=== PATIENT | female | born 1985 | race American Indian/Alaskan Native ===

== ENCOUNTER 2018-05-03 14:57 | Emergency (ER) | payer OTHER, SELFPAY ==
[2018-05-03 15:10] VITALS: BP 129/78; PULSE 87; RESP 18; TEMP 37; O2SAT 99; BMI 29.5
--- NOTE | 2018-05-03 15:15 | PC.NURSE ---
multiple small areas of redness/pain/swelling to lt buttock, hx of same r/t abscess per pt, denies fever/chills/nasea/drainage
--- NOTE | 2018-05-03 16:18 | ED_ITS ---
HPI - Skin/Abscess/Foreign Bdy <RIDDHI Medrano - Last Filed: 05/03/18 18:08> General Chief complaint: Skin/Abscess/Foreign Body Stated complaint: POSSIBLE ABCESS Time Seen by Provider: 05/03/18 15:17 Source: patient Mode of arrival: ambulatory Limitations: no limitations History of Present Illness HPI narrative: Patient presents for concern of abscess on her gluteus. States that she has 2. She has a history of abscesses on her buttocks, and feels that this is an early one. She denies any fevers, nausea, vomiting or diarrhea. She denies history of MRSA. Related Data Home Medications Medication Instructions Recorded Confirmed medroxyprogesterone [Depo-Provera] 400 mg IM #0 06/23/12 amlodipine-benazepril 1 cap PO DAILY 05/03/18 05/03/18 Previous Rx's Medication Instructions Recorded sulfamethoxazole-trimethoprim 1 tab PO BID 10 Days #20 tab 05/03/18 [Bactrim DS] Allergies Allergy/AdvReac Type Severity Reaction Status Date / Time codeine [CODEINE] Allergy Intermediate Hives Verified 05/03/18 15:24 Penicillins [PENICILLINS] Allergy Intermediate Hives Verified 05/03/18 15:24 Review of Systems <RIDDHI Medrano - Last Filed: 05/03/18 18:08> Review of Systems GENERAL: Denies chills, fatigue, malaise, fever, sweats. HEENT: Denies sinus pain, ear pain, sore throat, difficulty swallowing, dizziness. RESPIRATORY: Denies dyspnea, cough, wheezing, hemoptysis, sputum. CARDIOVASCULAR: Denies chest pain, palpitations, orthopnea, edema, GASTROINTESTINAL: Denies nausea, vomiting, abdominal pain, diarrhea, constipation, melena. : Denies dysuria, frequency, incontinence, hematuria, urinary retention. MUSCULOSKELETAL: denies weakness, joint pain, or bony pain SKIN: See HPI NEUROLOGIC: Denies weakness, headache, numbness, change in speech, confusion, seizures, incoordination. PSYCHIATRIC: No concerning psychosocial issues. 12 point review of systems is negative except for those stated above Exam <RIDDHI Medrano - Last Filed: 05/03/18 18:08> Narrative Exam Narrative: GENERAL: This is a well-nourished, well-developed patient, in no acute distress laying in bed. HEAD: Atraumatic. Normocephalic. No temporal or scalp tenderness. EYES: Pupils equal round and reactive. Extraocular motions intact. No scleral icterus. No injection or drainage. ENT: Nose without bleeding, purulent drainage or septal hematoma. Throat without erythema, tonsillar hypertrophy or exudate. Uvula midline. Airway patent. NECK: Trachea midline. No JVD or lymphadenopathy. Supple, nontender, no meningeal signs. CARDIOVASCULAR: Regular rate and rhythm without murmurs, gallops, or rubs. RESPIRATORY: Clear to auscultation. Breath sounds equal bilaterally. No wheezes , rales, or rhonchi. GASTROINTESTINAL: Abdomen soft, non-tender, nondistended. No hepato-splenomegaly , or palpable masses. No guarding. EXTREMITIES: No clubbing, cyanosis, or edema. No joint tenderness, effusion, or edema noted. BACK: Nontender without deformity or crepitance. No flank tenderness. NEURO: AOx3. SKIN: 1 cm of erythema noted on left buttock. No palpable abscess. 3 cm of erythema noted on right buttock. 1 cm possible abscess palpable in center. Hard to palpation. Initial Vital Signs Initial Vital Signs: Vital Signs Temperature 98.6 F 05/03/18 15:10 Pulse Rate 87 05/03/18 15:10 Respiratory Rate 18 05/03/18 15:10 Blood Pressure 129/78 H 05/03/18 15:10 Pulse Oximetry 99 05/03/18 15:10 <Mark Payton DO - Last Filed: 05/04/18 07:55> Initial Vital Signs Initial Vital Signs: Vital Signs Temperature 98.6 F 05/03/18 15:10 Pulse Rate 87 05/03/18 15:10 Respiratory Rate 18 05/03/18 15:10 Blood Pressure 129/78 H 05/03/18 15:10 Pulse Oximetry 99 05/03/18 15:10 Course <RIDDHI Medrano - Last Filed: 05/03/18 18:08> Additional Information: Patient presented with concern for possible abscess on her buttocks. Evaluation showed 2 small area of cellulitis, as well as a 1 cm possible abscess. However it felt very hard and indurated. Given the very small size, I attempted needle aspiration after thoroughly cleaning the area with 3 chlorhexidine with swabs. However I was unable to aspirate anything at this time. The patient and I did not feel inclined to do an incision and drainage at this point time, given the very small size as well as the hardness of the possible abscess. I discussed with patient follow-up if fevers, nausea, vomiting, diarrhea or spreading redness. I discussed at length Sitz baths in taking antibiotics as prescribed. She plans on following up with the primary care provider or coming back to the emergency department if needed. Vital Signs - 8 hr 05/03/18 15:10 Temperature 98.6 F Pulse Rate 87 Respiratory Rate 18 Blood Pressure 129/78 H Pulse Oximetry 99 <Mark Payton DO - Last Filed: 05/04/18 07:55> Vital Signs - 8 hr 05/03/18 15:10 Temperature 98.6 F Pulse Rate 87 Respiratory Rate 18 Blood Pressure 129/78 H Pulse Oximetry 99 MDM - Skin/Abscess/Foreign Bdy <AWA Medrano-BC - Last Filed: 05/03/18 18:08> MDM Narrative Medical decision making narrative: Given this small areas of erythema and warmth of the patient's buttocks, and treating for cellulitis at this time. She is allergic to penicillin and thus I do not want to use penicillins or cephalexin. I prescribed Bactrim at this point time. I discussed at length the fact that Bactrim combined with her amlodipine-benazepril can change potassium levels. She states accordance with that and, and will follow up if having any palpitations or anything like that. She would like to proceed with the Bactrim therapy at this point time. Given that I could not aspirate anything, the patient elected to not perform an I and D at this point time. She will monitor for worsening including fevers, nausea, vomiting, diarrhea. She will do Sitz baths and take antibiotics as discussed. She had no questions or concerns upon discharge. Discharge Plan Departure Patient Disposition: Home, Self-Care Clinical Impression: Cellulitis and abscess of buttock Discharge Date/Time: 05/03/18 16:34 Interventions: ED Discharge Assessment Last Done: 05/03/18 16:34 Instructions: DI for Cellulitis -- Adult, DI for Skin Abscess Activity Restrictions/Additional Instructions: I am starting you on antibiotics for skin infection. I also suggest that you do Sitz baths several times a day. We tried to drain your possible abscess today, however nothing came out. This is sitting in warm water with Epsom salt. Please be re-evaluated if he develops any fevers, nausea, vomiting or spreading redness. Follow up with her primary care physician or come back to the emergency department if needed. Prescriptions: New sulfamethoxazole-trimethoprim [Bactrim DS] 800-160 mg tablet 1 tab PO BID 10 Days Qty: 20 RF: 0 No Action medroxyprogesterone [Depo-Provera] 400 MG/1 ML suspension 400 mg IM Qty: 0 RF: 0 amlodipine-benazepril 5-10 mg Capsule 1 cap PO DAILY RF: 0 Referrals: Fatmata Hills PA-C [Primary Care Provider] - <Mark Payton DO - Last Filed: 05/04/18 07:55> Cosign ED Attending Tunde Attestation: I was available for consultation during this patient's emergency department encounter
== END 2018-05-03 16:34 | disposition home or self-care (01) ==
PROVIDERS: Emergency Provider Nurse Practitioner Family; Family Provider Physician Assistant; PCP Physician Assistant
DX: L02.31 Cutaneous abscess of buttock (principal); L03.317 Cellulitis of buttock
CPT/HCPCS: 99282

== ENCOUNTER → 2019-02-15 12:18 | Outpatient (CLI) | payer MEDICAID, OTHER, SELFPAY ==
--- NOTE | 2019-02-15 | DI.RAD.S_ITS ---
PROCEDURE: XR ANKLE RT MIN 3V INDICATIONS: RIGHT ANKLE SPRAIN TECHNIQUE: 3 views of the ankle were acquired. COMPARISON: [facility], , ANKLE 3 VIEWS LEFT, 01/05/2010, 23:53. FINDINGS: Bones: Mildly displaced, comminuted fracture of the distal fibula at, and below the level of the syndesmosis. No definite ankle mortise widening. Soft tissues: No tibiotalar joint effusion. Achilles tendon appears normal. IMPRESSION: Mildly displaced distal fibular fractures without definite mortise widening, although given the location of fracture plane, syndesmotic injury is not excluded. Dictated by: Sheba John M.D. on 02/15/2019 at 13:19 Approved by: Sheba John M.D. on 02/15/2019 at 13:22
== END ==
PROVIDERS: Family Provider Physician Assistant; PCP Physician Assistant; Visit Provider Family Medicine
DX: S82.831A Other fracture of upper and lower end of right fibula, initial encounter for closed fracture (principal); X58.XXXA Exposure to other specified factors, initial encounter
CPT/HCPCS: 73610

== ENCOUNTER 2019-05-29 10:26 | Emergency (ER) | payer MEDICAID, OTHER, SELFPAY ==
[2019-05-29 10:38] VITALS: BP 134/88; PULSE 80; RESP 13; TEMP 37.1; O2SAT 99
--- NOTE | 2019-05-29 11:12 | ED.HA ---
HPI - Headache General Chief Complaint: Headache Stated Complaint: severe headache/body aches Time Seen by Provider: 05/29/19 10:54 Source: patient Mode of arrival: ambulatory Limitations: no limitations History of Present Illness HPI Narrative: Patient is a 33-year-old female who presents with a variety of symptoms ongoing for the last 2 days. Sounds as though she has upper respiratory like symptoms headache nasal congestion cough but not productive. No shortness of breath. No real sore throat. She says that she is dehydrated because she vomited 1 time yesterday and had 1 episode of diarrhea but continues to drink juice. She is no longer nauseous she has not had any vomiting or diarrhea today. She has no abdominal pain. She did not have any Tylenol or ibuprofen at home so she did not take anything. She is complaining of some body aches as well that she is afebrile here. She is complaining of frequent urination. MD Complaint: headache Relieving factors: nothing Exacerbating factors: none Related Data Home Medications Medication Instructions Recorded Confirmed medroxyprogesterone [Depo-Provera] 400 mg IM #0 06/23/12 amlodipine-benazepril 1 cap PO DAILY 05/03/18 05/03/18 Previous Rx's Medication Instructions Recorded ibuprofen 800 mg PO TID PRN #20 tab 05/29/19 Allergies Allergy/AdvReac Type Severity Reaction Status Date / Time codeine [CODEINE] Allergy Intermediate Hives Verified 05/03/18 15:24 Penicillins [PENICILLINS] Allergy Intermediate Hives Verified 05/03/18 15:24 Review of Systems Review of Systems ROS Unobtainable: All systems reviewed & are unremarkable except as noted in HPI and below Constitutional Reports body ache(s), Denies chills, Denies fever(s) and Reports headache(s) Eyes Denies diplopia and Denies irritation ENT Ears, Nose, Mouth, and Throat: Reports headache(s) and Reports sore throat Cardiovascular Denies chest pain, Denies irregular heart rhythm, Denies lightheadedness, Denies palpitations and Denies orthopnea Respiratory Reports cough, Denies pain with cough and Denies stridor Gastrointestinal Gastrointestinal: Denies abdominal pain, Denies change in bowel habits, Denies diarrhea, Denies nausea and Denies vomiting Genitourinary Denies hematuria, Denies flank pain, Denies urinary incontinence and Denies urinary urgency Musculoskeletal Denies back pain, Denies muscle weakness, Denies numbness and Denies tingling Integumentary/Breasts Denies pruritus, Denies erythema, Denies rash and Denies wounds Neurologic Reports headache(s), Denies numbness and Denies tingling Endocrine Denies palpitations [facility] Medical History Hypertension (Acute) Social History Smoking Status: Current every day smoker Social History Smoking Status: Current every day smoker Exam Initial Vital Signs Initial Vital Signs: Vital Signs Temperature 98.8 F 05/29/19 10:38 Pulse Rate 80 05/29/19 10:38 Respiratory Rate 13 05/29/19 10:38 Blood Pressure 134/88 05/29/19 10:38 Pulse Oximetry 99 05/29/19 10:38 GENERAL: Well-appearing, well-nourished and in no acute distress. HEENT: Head atraumatic,EOMI, pupils reactive, face symmetric, neck supple no meningeal signs PHARYNX: No erythema, no tonsillar exudate, no cervical lymphadenopathy CARDIOVASCULAR: Regular rate and rhythm without murmurs, rubs or gallops. RESPIRATORY: Breath sounds equal bilaterally, no wheezes rales or rhonchi. ABDOMEN: Soft, nontender. Normoactive bowel sounds all 4 quadrants. No guarding or rebound. EXTREMITIES: Normal range of motion, no clubbing or edema. Neurovascularly intact NEUROLOGICAL: Alert and oriented x4.Normal gait and speech. Cranial nerves II through XII grossly intact. Director Of Public Safety strength equal bilaterally good push and pull equally SKIN: Warm, dry, no laceration, no petechiae, no rashes or lesions. Course Orders Ordered: Discontinued Medications Ibuprofen (Advil) 800 mg PO NOW ONE Stop: 05/29/19 11:12 Last Admin: 05/29/19 11:41 Dose: 800 mg Vital Signs - 8 hr 05/29/19 10:38 05/29/19 11:47 Temperature 98.8 F Pulse Rate 80 74 Respiratory Rate 13 12 Blood Pressure 134/88 134/84 Pulse Oximetry 99 98 MDM - Headache Lab Data Point of Care Testing Test Results Negative Urine Dip Bedside Urine Glucose Negative Bedside Urine Bilirubin - Negative Bedside Urine Ketone - Negative Urine Specific Mead 1.010 Bedside Urine Occult Blood - Negative Bedside Urine pH 5.5 Bedside Urine Protein - Negative Bedside Urine Urobilinogen - Negative Bedside Urine Nitrite - Negative Bedside Urine Leukocytes - Negative Esterase MDM Narrative Medical decision making narrative: Patient signed symptoms are more consistent with a viral infection. At this time antibiotics are not indicated. No UTI. Discharge Plan Departure Patient Disposition: Home Clinical Impression: Upper respiratory infection Qualifiers: URI type: unspecified viral URI Qualified Code(s): J06.9 - Acute upper respiratory infection, unspecified Discharge Date/Time: 05/29/19 11:48 Interventions: ED Discharge Assessment Last Done: 05/29/19 11:47 Instructions: DI for Viral Upper Respiratory Infection -- Adult Activity Restrictions/Additional Instructions: *You have been diagnosed with upper respiratory infection *What to do: At this time no antibiotics are indicated. Recommend continuing hydration with fluid, and resting as needed *Continue to take medications as directed Ibuprofen 800 mg every 8 hours if needed for body aches or fever take with food *Follow up with your primary care provider in 2-3 days *Return to ER if you should have worsening headache, weakness persistent vomiting, increased shortness of breath or any new, worsening or concerning symptoms Prescriptions: New ibuprofen 800 mg tablet 800 mg PO TID PRN (Reason: pain) Qty: 20 RF: 0 No Action medroxyprogesterone [Depo-Provera] 400 MG/1 ML suspension 400 mg IM Qty: 0 RF: 0 amlodipine-benazepril 5-10 mg Capsule 1 cap PO DAILY RF: 0 Referrals: Fatmata Hills PA-C [Primary Care Provider] -
[2019-05-29] MEDS: IBUPROFEN 400 MG TABLET 800 MG PO (11:41)
[2019-05-29 11:47] VITALS: BP 134/84; PULSE 74; RESP 12; O2SAT 98
== END 2019-05-29 11:48 | disposition home or self-care (01) ==
PROVIDERS: Emergency Provider Emergency Medicine; PCP Physician Assistant
DX: J06.9 Acute upper respiratory infection, unspecified (principal)
CPT/HCPCS: 81003; 81025; 99282

== ENCOUNTER 2019-08-15 22:00 | Emergency (ER) | payer MEDICAID, OTHER, SELFPAY ==
[2019-08-15 22:09] VITALS: BP 131/57; PULSE 97; RESP 20; TEMP 36.9; O2SAT 98; BMI 30.2
--- NOTE | 2019-08-15 22:20 | ED.ABDPAIN ---
HPI - Abdominal Pain General Chief Complaint: Urogenital-Female Stated Complaint: states bad abdominal pain and low back pain Time Seen by Provider: 08/15/19 22:18 Source: patient Mode of arrival: Ambulatory Limitations: no limitations History of Present Illness HPI narrative: Patient is a 34-year-old female who presents with right lower quadrant pain. She says it started today she has got some right flank pain as well it radiates around to her abdomen. She says she just finished a 2 week course of antibiotic for possible UTI that was diagnosed at the clinic. She had 1 episode of diarrhea yesterday and that seems to have stopped. She sometimes feels nauseous. She feels like the pain comes in waves. She feels a nauseous at times but no vomiting. She does have a significant amount of stress in her life apparently while bearing her brother her mother . MD complaint: abdominal pain and flank pain Pain Consistency: intermittent Location: RLQ Severity: moderate Quality: sharp Related Data Home Medications Medication Instructions Recorded Confirmed medroxyprogesterone [Depo-Provera] 400 mg IM #0 06/23/12 amlodipine-benazepril 1 cap PO DAILY 05/03/18 05/03/18 Previous Rx's Medication Instructions Recorded ibuprofen 800 mg PO TID PRN #20 tab 05/29/19 Allergies Allergy/AdvReac Type Severity Reaction Status Date / Time codeine [CODEINE] Allergy Intermediate Hives Verified 08/15/19 22:11 Penicillins [PENICILLINS] Allergy Intermediate Hives Verified 08/15/19 22:11 Review of Systems Review of Systems Narrative: GENERAL: Denies chills, fatigue, malaise, fever, sweats, travel HEENT: Denies sinus pain, ear pain, sore throat, difficulty swallowing, neck pain RESPIRATORY: Denies dyspnea, cough, wheezing, hemoptysis, sputum. CARDIOVASCULAR: Denies chest pain, palpitations, orthopnea, edema GASTROINTESTINAL: See HPI : Denies dysuria, frequency, incontinence, hematuria, urinary retention, flank pain. MUSCULOSKELETAL: Denies weakness, joint pain, or bony pain SKIN: No rash, no erythema, no pruritus NEUROLOGIC: Denies weakness, dizziness, headache, numbness, change in speech, confusion PSYCHIATRIC: No concerning psychosocial issues. 12 point review of systems is negative except for those stated above and HPI [facility] Medical History Hypertension (Acute) Social History Smoking Status: Current every day smoker Social History Smoking Status: Current every day smoker Exam Initial Vital Signs Initial Vital Signs: Vital Signs Temperature 98.4 F 08/15/19 22:09 Pulse Rate 97 H 08/15/19 22:09 Respiratory Rate 20 08/15/19 22:09 Blood Pressure 131/57 L 08/15/19 22:09 Pulse Oximetry 98 08/15/19 22:09 GENERAL: Quite anxious and tachypneic shallow breathing HEENT: Head atraumatic,EOMI, pupils reactive, face symmetric CARDIOVASCULAR: Regular rate and rhythm without murmurs, rubs or gallops. RESPIRATORY: Breath sounds equal bilaterally, no wheezes rales or rhonchi. Tachypnea. Speaks in full sentences no difficulty ABDOMEN: Soft, mild right lower quadrant tenderness no guarding no rebound : Mild CVA tenderness CVA tenderness EXTREMITIES: Normal range of motion, no clubbing or edema. Neurovascularly intact NEUROLOGICAL: Alert and oriented x4.Normal gait and speech. Cranial nerves II through XII grossly intact. SKIN: Warm, dry, no laceration, no petechiae, no rashes or lesions. Course Orders Ordered: ED Orders 08/15/19 22:31 Complete Blood Count AUTO DIFF Stat Comprehensive Metabolic Panel Stat Lipase Stat Troponin & CK Cardiac Panel Stat 08/15/19 22:32 CT kidney ureter bladder (KUB) Stat 08/15/19 23:37 US pelvic complete Stat Discontinued Medications Sodium Chloride (Normal Saline 0.9%) 1,000 mls @ 1,000 mls/hr IV CONT ANISHA Last Infusion: 08/16/19 00:34 Dose: 0 mls/hr Documented by: Admin: 08/15/19 22:58 Dose: 1,000 mls/hr Documented by: RAJNI Ketorolac Tromethamine (Toradol) 30 mg IV NOW ONE Stop: 08/15/19 22:32 Last Admin: 08/15/19 22:57 Dose: 30 mg Documented by: RAJNI Lorazepam (Ativan) 0.5 mg PO NOW ONE Stop: 08/16/19 00:30 Last Admin: 08/16/19 00:35 Dose: 0.5 mg Documented by: JACKIE Ondansetron HCl (Zofran) 4 mg IV NOW ONE Stop: 08/15/19 22:32 Last Admin: 08/15/19 22:58 Dose: 4 mg Documented by: RAJNI Vital Signs Vital signs: Vital Signs - 8 hr 08/15/19 22:09 08/16/19 00:00 Temperature 98.4 F Pulse Rate 97 H 79 Respiratory Rate 20 21 Blood Pressure 131/57 L Blood Pressure [Right Arm] 111/74 Pulse Oximetry 98 99 MDM - Abdominal Pain Lab Data Attestation: I reviewed the patient's lab results. Result diagrams: 08/15/19 22:31 08/15/19 22:31 Labs: Lab Results 08/15/19 08/15/19 Range/Units 22:31 22:31 WBC 11.9 H (4.5-11.0) X10^3/uL RBC 4.63 (4.0-5.2) X10^6/uL Hgb 13.8 (12.0-16.0) g/dL Hct 41.1 (36-46) % MCV 88.7 (80-100) fL MCH 29.8 (26-34) PG MCHC 33.7 (30-36) % RDW 13.4 (11.6-14.8) % Plt Count 337 (150-400) X10^3/uL Neut % (Auto) 59.8 (50-75) % Lymph % (Auto) 28.4 (25-40) % Meeker % (Auto) 7.6 (3-14) % Eos % (Auto) 3.0 (2-4) % Baso % (Auto) 1.2 (0-2) % Neut # (Auto) 7100 H (5393-8068) /uL Lymph # (Auto) 3400 (8847-4173) /uL Meeker # (Auto) 900 (0-900) /uL Eos # (Auto) 400 (0-450) /uL Baso # (Auto) 100 (0-100) /uL Sodium 141 (137-145) mmol/L Potassium 4.0 (3.4-5.1) mmol/L Chloride 111 H (98-107) mmol/L Carbon Dioxide 23 (22-32) mmol/L BUN 13 (7-17) mg/dL Creatinine 0.80 (0.52-1.04) mg/dL Estimated GFR > 60.0 (>60) mL/min BUN/Creatinine Ratio 16.3 (6-22) Glucose 105 H (70-100) mg/dL Calcium 9.3 (8.4-10.2) mg/dL Total Bilirubin 0.2 (0.2-1.3) mg/dL AST 21 (14-36) IU/L ALT 19 (9-52) IU/L Alkaline Phosphatase 57 (38-126) U/L Total Creatine Kinase 49 (30-135) U/L CK-MB (CK-2) TNP CK-MB (CK-2) Rel Index TNP Troponin I < 0.012 (0.01-0.034) ng/mL Total Protein 7.6 (6.3-8.2) g/dL Albumin 4.2 (3.5-5.0) g/dL Globulin 3.4 (1.7-4.1) g/dL Albumin/Globulin Ratio 1.2 (1.0-2.8) Lipase 103 (23-300) U/L Point of care testing: Point of Care Testing Test Results Negative Urine Dip Bedside Urine Glucose Negative Bedside Urine Bilirubin - Negative Bedside Urine Ketone - Negative Urine Specific [place] 1.005 Bedside Urine Occult Blood - Negative Bedside Urine pH 6.0 Bedside Urine Protein - Negative Bedside Urine Urobilinogen - Negative Bedside Urine Nitrite - Negative Bedside Urine Leukocytes - Negative Esterase Imaging Data CT scan - abdomen: Radiologist's impression: REGIONAL [employer]ICE PRESIDENT [employer] REPORT: NO ACUTE APPENDICITIS DIVERTICULITIS COLITIS OBSTRUCTIVE UROPATHY PELVIC us: Radiologist's impression: 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 SIMPLE FLUID CONTAINING CYST WITHIN THE RIGHT OVARY INTACT ARTERIAL FLOW TO THE RIGHT OVARY. INTACT ARTERIAL BLOOD FLOW TO THE LEFT OVARY. SIMPLE CONTAINING CYST WITHIN THE LEFT OVARY NO FREE FLUID. ECG Data Attestation: I personally reviewed and interpreted this ECG as follows: Prior ECG tracings: not available for review Interpretation: Normal sinus rhythm rate 85 p.r. interval 158 QRS [address] elevations or depressions no signs of ischemia MDM Narrative Medical decision making narrative: The patient is quite anxious she has a lot going on in her life at this time. No source of right lower quadrant pain identified except that she does have a simple ovarian cyst. No sign of infection. She is overall feeling much better she has significant amount of support around her period Discharge Plan Departure Patient Disposition: Home Clinical Impression: Abdominal pain Qualifiers: Abdominal location: right lower quadrant Qualified Code(s): R10.31 - Right lower quadrant pain Discharge Date/Time: 08/16/19 00:39 Instructions: Acute Abdominal Pain Activity Restrictions/Additional Instructions: *You have been diagnosed with abdominal pain *What to do: At this time blood work CT scan and ultrasound were all reassuring. EKG also reassuring *Continue to take medications as directed *Follow up with your primary care provider in 2-3 days *Return to ER if you should have increasing chest pain heart palpitations shortness of breath abdominal pain persistent vomiting or any new, worsening or concerning symptoms Prescriptions: No Action medroxyprogesterone [Depo-Provera] 400 MG/1 ML suspension 400 mg IM Qty: 0 RF: 0 amlodipine-benazepril 5-10 mg Capsule 1 cap PO DAILY RF: 0 ibuprofen 800 mg tablet 800 mg PO TID PRN (Reason: pain) Qty: 20 RF: 0 Referrals: Fatmata Hills PA-C [Primary Care Provider] -
--- NOTE | 2019-08-15 22:32 | DI.CT.S_ITS ---
PROCEDURE: CT KIDNEY URETER BLADDER (KUB) INDICATIONS: right flank pain, nausea, vomiting TECHNIQUE: Noncontrast 5 mm thick sections acquired from the diaphragms to the symphysis. 5 mm thick coronal and sagittal reformats were then performed. For radiation dose reduction, the following was used: automated exposure control, adjustment of mA and/or kV according to patient size. COMPARISON: Report of CT abdomen and pelvis 06/06/2007. FINDINGS: Image quality: Excellent. Lung bases: Lung bases are clear. Heart size is normal. Urinary system: Both kidneys are normal in size. No kidney stones. No hydronephrosis or perinephric fat stranding. Both ureters appear non-dilated throughout their expected courses. Bladder wall thickness is normal; no calcified bladder stones. Other solid organs: Liver is normal in size. Gallbladder is unremarkable. Pancreas is normal in contours. Spleen is normal in size. No adrenal nodules. Peritoneum and bowel: Unenhanced bowel loops demonstrate normal wall thickness and caliber. A few colonic diverticula. The appendix is normal. Increased stool in the rectal vault. No free fluid or air. Nodes and vessels: No retroperitoneal or mesenteric adenopathy by size criteria. Aorta and inferior vena cava are normal in caliber. Minimal calcified atherosclerotic plaque. Abdominal wall: Small fat-containing periumbilical hernia. Pelvis: No free pelvic fluid. Uterus is unremarkable. No inguinal hernias or adenopathy. Bones: No suspicious bony lesions. No vertebral body compression fractures. IMPRESSION: Negative exam. No kidney stones. No acute inflammatory change identified. The appendix is normal. This report is concordant with the overnight preliminary interpretation. Dictated by: Meng Eric M.D. on 08/16/2019 at 7:56 Approved by: Meng Eric M.D. on 08/16/2019 at 8:02
[2019-08-15 22:43] LABS: Add Manual Diff / Slide Review NO; Basophils Absolute Auto 100 /uL (0-100); Basophils Percent Auto 1.2 % (0-2); Eosinophils Absolute Auto 400 /uL (0-450); Hematocrit 41.1 % (36-46); Hemoglobin 13.8 g/dL (12.0-16.0); Lymphocytes Absolute Auto 3400 /uL (1100-4500); Lymphocytes Percent Auto 28.4 % (25-40); Mean Corpuscular HGB Conc 33.7 % (30-36); Mean Corpuscular Hemoglobin 29.8 PG (26-34); Mean Corpuscular Volume 88.7 fL (80-100); Monocytes Absolute Auto 900 /uL (0-900); Monocytes Percent Auto 7.6 % (3-14); Neutrophils Absolute Auto 7100 /uL (1500-7000); Neutrophils Percent Auto 59.8 % (50-75); Platelet Count 337 X10^3/uL (150-400); Red Blood Cell Count 4.63 X10^6/uL (4.0-5.2); Red Cell Distribution Width 13.4 % (11.6-14.8); White Blood Cell Count 11.9 X10^3/uL (4.5-11.0)
[2019-08-15 22:51] LABS: Alanine Aminotransferase 19 IU/L (9-52); Albumin 4.2 g/dL (3.5-5.0); Albumin Globulin Ratio 1.2 (1.0-2.8); Alkaline Phosphatase 57 U/L (38-126); Aspartate Aminotransferase 21 IU/L (14-36); BUN Creatinine Ratio 16.3 (6-22); Bilirubin Total 0.2 mg/dL (0.2-1.3); Blood Urea Nitrogen 13 mg/dL (7-17); Calcium 9.3 mg/dL (8.4-10.2); Carbon Dioxide 23 mmol/L (22-32); Chloride 111 mmol/L (98-107); Creatine Kinase 49 U/L (30-135); Estimated Glomerular Filt Rate > 60.0 mL/min (>60); Globulin 3.4 g/dL (1.7-4.1); Glucose 105 mg/dL (70-100); HEMOLYSIS < 15 (0-50); Lipase 103 U/L (23-300); Sodium 141 mmol/L (137-145); Total Protein 7.6 g/dL (6.3-8.2)
[2019-08-15] MEDS: KETOROLAC 60 MG/2 ML VIAL 30 MG IV (22:57)
[2019-08-15] MEDS: ONDANSETRON 4 MG/2 ML INJ IV (22:58)
[2019-08-15] MEDS: SODIUM CHLORIDE 0.9% 1,000 ML 1000 ML IV (22:58)
[2019-08-15 23:03] LABS: Troponin I < 0.012 ng/mL (0.01-0.034)
--- NOTE | 2019-08-15 23:37 | DI.US.S_ITS ---
PROCEDURE: US PELVIC COMPLETE INDICATIONS: PAIN TECHNIQUE: Real-time scanning was performed of the pelvic organs, with image documentation. Additional endovaginal scanning was necessary due to incomplete visualization of the adnexal and endometrial structures by transabdominal scanning. COMPARISON: CT KUB 08/15/2019. FINDINGS: Transabdominal scanning: Limited scanning through the kidneys shows no hydronephrosis. No pathologic free abdominal or pelvic fluid. Right kidney measures 9.1 cm. Left kidney measures 9.1 cm. No inflammatory change in the right lower quadrant is identified. Endovaginal scanning: Uterus: Uterus is normal in size at 5.2 x 3.1 x 4.1 cm. The endometrium measures 2 mm in combined thickness. Ovaries: Right ovary measures 2.3 x 1.0 x 1.1. Left ovary measures 3.1 x 1.4 x 1.5. Small follicles bilaterally. Color flow is symmetric. IMPRESSION: Negative exam. No source for pelvic pain is identified. No free fluid. This report is concordant with the overnight preliminary interpretation. Dictated by: Meng Eric M.D. on 08/16/2019 at 7:30 Approved by: Meng Eric M.D. on 08/16/2019 at 7:33
[2019-08-16] VITALS: BP 111/74; PULSE 79; RESP 21; O2SAT 99
[2019-08-16] MEDS: LORazepam 0.5 MG TABLET PO (00:35)
== END 2019-08-16 00:39 | disposition home or self-care (01) ==
PROVIDERS: Emergency Provider Emergency Medicine; PCP Physician Assistant
DX: R10.31 Right lower quadrant pain (principal)
CPT/HCPCS: 36415; 74176; 76830; 76856; 80053; 81003; 81025; 82550; 83690; 84484; 85025; 93005; 96361; 96374; 96375; 99283; 99285; J1885; J2405

== ENCOUNTER → 2019-11-24 14:05 | Outpatient (CLI) | payer OTHER, SELFPAY ==
--- NOTE | 2019-11-24 | DI.RAD.S_ITS ---
PROCEDURE: XR WRIST RT MIN 3V INDICATIONS: RIGHT WRIST PAIN TECHNIQUE: 4 views of the wrist were acquired. COMPARISON: [facility], , WRIST MINIMUM 3 VIEWS RIGHT, 12/29/2009, 10:59. FINDINGS: Bones: No fractures or dislocations. No suspicious bony lesions. Scaphoid view: No trauma the scaphoid is found. Soft tissues: No suspicious soft tissue calcifications. IMPRESSION: Normal for age, source of current persistent pain symptoms is not seen. Dictated by: Varinder Swenson M.D. on 11/24/2019 at 14:33 Approved by: Varinder Swenson M.D. on 11/24/2019 at 14:34
--- NOTE | 2019-11-24 | DI.RAD.S_ITS ---
PROCEDURE: XR HAND RT MIN 3V INDICATIONS: acute pain of right hand TECHNIQUE: 3 views of the hand(s) acquired. COMPARISON: None. FINDINGS: Bones: No fractures or dislocations. Carpal bones are normally aligned. No suspicious bony lesions. Soft tissues: No suspicious soft tissue calcifications. IMPRESSION: Normal for age, source of current pain symptoms is not seen. Dictated by: Varinder Swenson M.D. on 11/24/2019 at 14:33 Approved by: Varinder Swenson M.D. on 11/24/2019 at 14:33
== END ==
PROVIDERS: PCP Physician Assistant; Visit Provider Physician Assistant
DX: M25.531 Pain in right wrist (principal); M79.641 Pain in right hand
CPT/HCPCS: 73110; 73130

== ENCOUNTER 2020-04-28 06:31 | Emergency (ER) | payer MEDICAID, SELFPAY ==
[2020-04-28 06:37] VITALS: BP 141/81; PULSE 88; RESP 18; TEMP 36.6
--- NOTE | 2020-04-28 06:41 | ED_ITS ---
HPI - General Adult <Mark Payton DO - Last Filed: 04/28/20 18:42> General Chief complaint: Abdominal Pain Stated complaint: abdominal pain Time Seen by Provider: 04/28/20 06:34 Source: patient Mode of arrival: Ambulatory Limitations: no limitations History of Present Illness HPI narrative: 34-year-old female here for evaluation of 2 days of lower abdominal pain. Had some nausea yesterday but no vomiting. No prior abdominal surgeries. No change in bowel habits. Pain not worse or better with bowel movements. Has had urinary frequency. States the pain is worse when she urinates. States she has not had a menstrual cycle in 2 months. Not on control. No fevers. Has not tried anything for her symptoms prior to arrival Related Data Home Medications Medication Instructions Recorded Confirmed medroxyprogesterone [Depo-Provera] 400 mg IM #0 06/23/12 12/14/19 lisinopril 40 mg tablet 40 mg PO DAILY 12/14/19 12/14/19 Previous Rx's Medication Instructions Recorded ibuprofen 800 mg PO TID PRN #20 tab 05/29/19 doxycycline hyclate 100 mg PO BID #20 cap 04/28/20 metronidazole 500 mg PO TID #21 tab 04/28/20 Allergies Allergy/AdvReac Type Severity Reaction Status Date / Time codeine [CODEINE] Allergy Intermediate Hives Verified 12/14/19 08:35 Penicillins [PENICILLINS] Allergy Intermediate Hives Verified 12/14/19 08:35 <Jelly Kelley MD - Last Filed: 04/28/20 17:45> History of Present Illness HPI narrative: Care is assumed. Patient is independently examined and questions. It turns out that she has had vaginal discharge for the last 4 days and that does coincide with a new sexual partner without the use of condoms. She also complains of severe pelvic pain that almost feels like menstrual cramps. She is not having any vaginal bleeding. Review of Systems <Mark Payton DO - Last Filed: 04/28/20 18:42> Constitutional Constitutional: Denies fever(s) Cardiovascular Cardiovascular: Denies chest pain and Denies dyspnea Respiratory Respiratory: Denies dyspnea Gastrointestinal Gastrointestinal: Reports abdominal pain, Denies change in bowel habits, Denies diarrhea, Reports nausea and Denies vomiting Genitourinary Genitourinary: Reports flank pain Genitourinary: Reports flank pain and Denies vaginal discharge Comments: Urinary frequency Musculoskeletal Musculoskeletal: Denies arthralgias, Reports back pain and Denies myalgias Integumentary/Breasts Skin/Breast: Denies rash Neurologic Neurologic: Denies behavioral changes Psychiatric Psychiatric: Denies behavioral changes Hematologic/Lymphatic Hematologic/Lymphatic: Denies easy bleeding and Denies easy bruising Patient History <Mark Payton DO - Last Filed: 04/28/20 18:42> Medical History Hypertension (Acute) Social History Smoking Status: Current every day smoker Smoking Status: Current every day smoker tobacco type: cigarettes alcohol intake frequency: 0-2 drinks per day Substance Use Type: marijuana Exam <Mark Payton DO - Last Filed: 04/28/20 18:42> Initial Vital Signs Initial Vital Signs: Vital Signs Temperature 98 F 04/28/20 06:37 Pulse Rate 88 04/28/20 06:37 Respiratory Rate 18 04/28/20 06:37 Blood Pressure 141/81 H 04/28/20 06:37 Const General: cooperative and comfortable Limitations: mental status not altered HENMT Head: normal to inspection and normocephalic Resp Effort & Inspection: normal respiratory effort Cardio Rate: regular rate GI Inspection: non-distended Palpation: soft, No firm and tender (Suprapubic) Back/Spine/Pelvis Back: CVA tenderness left Neuro General: patient alert and patient awake Cognition: normal cognition Speech: speech normal Extrem General: normal to inspection and capillary refill normal Psych Appearance: grossly normal and well kempt <Jelly Kelley MD - Last Filed: 04/28/20 17:45> Narrative Exam Narrative: Pelvic exam: Bimanual exam is undertaken. External genitalia is within normal limits. Vaginal mucosa is not particularly erythematous. There is a minor amount of white discharge without significant odor from the vagina. She has tenderness along the entire length of her vagina with moderate cervical motion tenderness and tenderness in the right adnexa more so than the left. Initial Vital Signs Initial Vital Signs: Vital Signs Temperature 98 F 04/28/20 06:37 Pulse Rate 88 04/28/20 06:37 Respiratory Rate 18 04/28/20 06:37 Blood Pressure 141/81 H 04/28/20 06:37 Course <Mark Payton DO - Last Filed: 04/28/20 18:42> Orders Ordered: Discontinued Medications Doxycycline Hyclate (Vibramycin) 100 mg PO NOW ONE Stop: 04/28/20 07:51 Last Admin: 04/28/20 08:03 Dose: 100 mg Documented by: JESUS Ceftriaxone Sodium/Dextrose (Rocephin) 1 gm in 50 mls @ 100 mls/hr IV NOW ONE Stop: 04/28/20 08:20 Last Infusion: 04/28/20 08:44 Dose: 0 mls/hr Documented by: Admin: 04/28/20 08:04 Dose: 100 mls/hr Documented by: JESUS Ketorolac Tromethamine (Toradol) 15 mg IV NOW ONE Stop: 04/28/20 07:54 Last Admin: 04/28/20 08:03 Dose: 15 mg Documented by: JESUS Vital Signs Vital signs: Vital Signs - 8 hr 04/28/20 10:34 Pulse Rate 76 Respiratory Rate 14 Blood Pressure [Right Arm] 100/55 L Pulse Oximetry 100 <Jelly Kelley MD - Last Filed: 04/28/20 17:45> Orders Ordered: Discontinued Medications Doxycycline Hyclate (Vibramycin) 100 mg PO NOW ONE Stop: 04/28/20 07:51 Last Admin: 04/28/20 08:03 Dose: 100 mg Documented by: JESUS Ceftriaxone Sodium/Dextrose (Rocephin) 1 gm in 50 mls @ 100 mls/hr IV NOW ONE Stop: 04/28/20 08:20 Last Infusion: 04/28/20 08:44 Dose: 0 mls/hr Documented by: Admin: 04/28/20 08:04 Dose: 100 mls/hr Documented by: JESUS Ketorolac Tromethamine (Toradol) 15 mg IV NOW ONE Stop: 04/28/20 07:54 Last Admin: 04/28/20 08:03 Dose: 15 mg Documented by: JESUS Vital Signs Vital signs: Vital Signs - 8 hr 04/28/20 10:34 Pulse Rate 76 Respiratory Rate 14 Blood Pressure [Right Arm] 100/55 L Pulse Oximetry 100 Medical Decision Making <Mark Payton DO - Last Filed: 04/28/20 18:42> Lab Data Result diagrams: 04/28/20 07:30 04/28/20 07:30 Labs: Lab Results 04/28/20 04/28/20 04/28/20 Range/Units 07:30 07:30 07:30 WBC 8.3 (4.5-11.0) X10^3/uL RBC 4.47 (4.0-5.2) X10^6/uL Hgb 14.0 (12.0-16.0) g/dL Hct 40.5 (36-46) % MCV 90.5 (80-100) fL MCH 31.4 (26-34) PG MCHC 34.7 (30-36) % RDW 13.6 (11.6-14.8) % Plt Count 287 (150-400) X10^3/uL Neut % (Auto) 62.0 (50-75) % Lymph % (Auto) 24.4 L (25-40) % [place] % (Auto) 9.6 (3-14) % Eos % (Auto) 3.3 (2-4) % Baso % (Auto) 0.7 (0-2) % Neut # (Auto) 5200 (4771-1523) /uL Lymph # (Auto) 2000 (2823-0278) /uL [place] # (Auto) 800 (0-900) /uL Eos # (Auto) 300 (0-450) /uL Baso # (Auto) 100 (0-100) /uL Sodium 140 (137-145) mmol/L Potassium 4.0 (3.4-5.1) mmol/L Chloride 112 H (98-107) mmol/L Carbon Dioxide 23 (22-32) mmol/L BUN 9 (7-17) mg/dL Creatinine 0.72 (0.52-1.04) mg/dL Estimated GFR > 60.0 (>60) mL/min BUN/Creatinine Ratio 12.5 (6-22) Glucose 98 (70-100) mg/dL Calcium 9.1 (8.4-10.2) mg/dL Total Bilirubin 0.3 (0.2-1.3) mg/dL AST 48 H (14-36) IU/L ALT 67 H (<35) IU/L Alkaline Phosphatase 64 (38-126) U/L Total Protein 6.6 (6.3-8.2) g/dL Albumin 3.8 (3.5-5.0) g/dL Globulin 2.8 (1.7-4.1) g/dL Albumin/Globulin Ratio 1.4 (1.0-2.8) Lipase 130 (23-300) U/L Ur Chlamydia DNA (PCR) Not detected HIV 1&2 Ab/P24 Ag 4thGn (NEGATIVE) N gonorrhoeae DNA (PCR) Not detected 04/28/20 Range/Units 07:46 WBC (4.5-11.0) X10^3/uL RBC (4.0-5.2) X10^6/uL Hgb (12.0-16.0) g/dL Hct (36-46) % MCV (80-100) fL MCH (26-34) PG MCHC (30-36) % RDW (11.6-14.8) % Plt Count (150-400) X10^3/uL Neut % (Auto) (50-75) % Lymph % (Auto) (25-40) % Mccone % (Auto) (3-14) % Eos % (Auto) (2-4) % Baso % (Auto) (0-2) % Neut # (Auto) (9453-5374) /uL Lymph # (Auto) (6545-1439) /uL Mccone # (Auto) (0-900) /uL Eos # (Auto) (0-450) /uL Baso # (Auto) (0-100) /uL Sodium (137-145) mmol/L Potassium (3.4-5.1) mmol/L Chloride (98-107) mmol/L Carbon Dioxide (22-32) mmol/L BUN (7-17) mg/dL Creatinine (0.52-1.04) mg/dL Estimated GFR (>60) mL/min BUN/Creatinine Ratio (6-22) Glucose (70-100) mg/dL Calcium (8.4-10.2) mg/dL Total Bilirubin (0.2-1.3) mg/dL AST (14-36) IU/L ALT (<35) IU/L Alkaline Phosphatase (38-126) U/L Total Protein (6.3-8.2) g/dL Albumin (3.5-5.0) g/dL Globulin (1.7-4.1) g/dL Albumin/Globulin Ratio (1.0-2.8) Lipase (23-300) U/L Ur Chlamydia DNA (PCR) HIV 1&2 Ab/P24 Ag 4thGn Negative (NEGATIVE) N gonorrhoeae DNA (PCR) Point of Care Testing Test Results Negative Urine Dip Bedside Urine Glucose Negative Bedside Urine Bilirubin - Negative Bedside Urine Ketone - Negative Urine Specific [place] 1.010 Bedside Urine Occult Blood - Negative Bedside Urine pH 6.0 Bedside Urine Protein - Negative Bedside Urine Urobilinogen - Negative Bedside Urine Nitrite - Negative Bedside Urine Leukocytes - Negative Esterase Point of care testing: Point of Care Testing Test Results Negative Urine Dip Bedside Urine Glucose Negative Bedside Urine Bilirubin - Negative Bedside Urine Ketone - Negative Urine Specific [place] 1.010 Bedside Urine Occult Blood - Negative Bedside Urine pH 6.0 Bedside Urine Protein - Negative Bedside Urine Urobilinogen - Negative Bedside Urine Nitrite - Negative Bedside Urine Leukocytes - Negative Esterase MDM Narrative Medical decision making narrative: Care turned over to Dr. Kelley do follow-up on labs and disposition. <Jelly Kelley MD - Last Filed: 04/28/20 17:45> Medical Records Medical records reviewed: Yes I reviewed the patient's medical records. Lab Data Lab results reviewed: Yes I reviewed the patient's lab results. Lab results narrative: Mildly elevated transaminases Occasional clue cells Labs: Lab Results 04/28/20 04/28/20 04/28/20 Range/Units 07:30 07:30 07:30 WBC 8.3 (4.5-11.0) X10^3/uL RBC 4.47 (4.0-5.2) X10^6/uL Hgb 14.0 (12.0-16.0) g/dL Hct 40.5 (36-46) % MCV 90.5 (80-100) fL MCH 31.4 (26-34) PG MCHC 34.7 (30-36) % RDW 13.6 (11.6-14.8) % Plt Count 287 (150-400) X10^3/uL Neut % (Auto) 62.0 (50-75) % Lymph % (Auto) 24.4 L (25-40) % [place] % (Auto) 9.6 (3-14) % Eos % (Auto) 3.3 (2-4) % Baso % (Auto) 0.7 (0-2) % Neut # (Auto) 5200 (5203-5397) /uL Lymph # (Auto) 2000 (2397-8022) /uL [place] # (Auto) 800 (0-900) /uL Eos # (Auto) 300 (0-450) /uL Baso # (Auto) 100 (0-100) /uL Sodium 140 (137-145) mmol/L Potassium 4.0 (3.4-5.1) mmol/L Chloride 112 H (98-107) mmol/L Carbon Dioxide 23 (22-32) mmol/L BUN 9 (7-17) mg/dL Creatinine 0.72 (0.52-1.04) mg/dL Estimated GFR > 60.0 (>60) mL/min BUN/Creatinine Ratio 12.5 (6-22) Glucose 98 (70-100) mg/dL Calcium 9.1 (8.4-10.2) mg/dL Total Bilirubin 0.3 (0.2-1.3) mg/dL AST 48 H (14-36) IU/L ALT 67 H (<35) IU/L Alkaline Phosphatase 64 (38-126) U/L Total Protein 6.6 (6.3-8.2) g/dL Albumin 3.8 (3.5-5.0) g/dL Globulin 2.8 (1.7-4.1) g/dL Albumin/Globulin Ratio 1.4 (1.0-2.8) Lipase 130 (23-300) U/L Ur Chlamydia DNA (PCR) Not detected HIV 1&2 Ab/P24 Ag 4thGn (NEGATIVE) N gonorrhoeae DNA (PCR) Not detected 04/28/20 Range/Units 07:46 WBC (4.5-11.0) X10^3/uL RBC (4.0-5.2) X10^6/uL Hgb (12.0-16.0) g/dL Hct (36-46) % MCV (80-100) fL MCH (26-34) PG MCHC (30-36) % RDW (11.6-14.8) % Plt Count (150-400) X10^3/uL Neut % (Auto) (50-75) % Lymph % (Auto) (25-40) % [place] % (Auto) (3-14) % Eos % (Auto) (2-4) % Baso % (Auto) (0-2) % Neut # (Auto) (3486-5665) /uL Lymph # (Auto) (0676-8770) /uL [place] # (Auto) (0-900) /uL Eos # (Auto) (0-450) /uL Baso # (Auto) (0-100) /uL Sodium (137-145) mmol/L Potassium (3.4-5.1) mmol/L Chloride (98-107) mmol/L Carbon Dioxide (22-32) mmol/L BUN (7-17) mg/dL Creatinine (0.52-1.04) mg/dL Estimated GFR (>60) mL/min BUN/Creatinine Ratio (6-22) Glucose (70-100) mg/dL Calcium (8.4-10.2) mg/dL Total Bilirubin (0.2-1.3) mg/dL AST (14-36) IU/L ALT (<35) IU/L Alkaline Phosphatase (38-126) U/L Total Protein (6.3-8.2) g/dL Albumin (3.5-5.0) g/dL Globulin (1.7-4.1) g/dL Albumin/Globulin Ratio (1.0-2.8) Lipase (23-300) U/L Ur Chlamydia DNA (PCR) HIV 1&2 Ab/P24 Ag 4thGn Negative (NEGATIVE) N gonorrhoeae DNA (PCR) Point of Care Testing Test Results Negative Urine Dip Bedside Urine Glucose Negative Bedside Urine Bilirubin - Negative Bedside Urine Ketone - Negative Urine Specific [place] 1.010 Bedside Urine Occult Blood - Negative Bedside Urine pH 6.0 Bedside Urine Protein - Negative Bedside Urine Urobilinogen - Negative Bedside Urine Nitrite - Negative Bedside Urine Leukocytes - Negative Esterase Point of care testing: Point of Care Testing Test Results Negative Urine Dip Bedside Urine Glucose Negative Bedside Urine Bilirubin - Negative Bedside Urine Ketone - Negative Urine Specific [place] 1.010 Bedside Urine Occult Blood - Negative Bedside Urine pH 6.0 Bedside Urine Protein - Negative Bedside Urine Urobilinogen - Negative Bedside Urine Nitrite - Negative Bedside Urine Leukocytes - Negative Esterase MDM Narrative Medical decision making narrative: 34-year-old woman presents with 4 days of increasing pelvic pain with vaginal discharge and recent episode of unprotected sex with a new partner. Urine is sent for gonorrhea and chlamydia. Blood work is obtained. Will begin empiric treatment for PID. At this point her exam is most consistent with PID and she is not based on a urine test. Without significant rebound guarding or significant masses appreciated on pelvic exam I do not believe that additional imaging will be required unless lab work is dramatically abnormal. Of today suggests doxycycline for 14 days as well as a single dose of a long- acting cephalosporin. I also recommend testing for HIV and syphilis in addition to the gonorrhea and chlamydia as well as a wet mount. Patient consents to HIV and syphilis testing and orders are placed. PID, with no need for hospitalization as she is able to tolerate fluids without difficulty. Possible bacterial vaginosis as well Will treat with doxycycline 100 mg b.i.d. for 10 days for pelvic inflammatory disease and metronidazole 500 mg 3 times a day for 7 days for bacterial vaginosis. Safe for home discharge Discharge Plan Departure Patient Disposition: Home Clinical Impression: Acute pelvic inflammatory disease, Bacterial vaginosis, Abnormal cervical Papanicolaou smear Discharge Date/Time: 04/28/20 10:44 Instructions: DI for Pelvic Inflammatory Disease, DI for Bacterial Vaginosis Activity Restrictions/Additional Instructions: Thank you for coming in today I believe that you have pelvic inflammatory disease as the cause of the low pelvic pain you are experiencing. I have given you a prescription for doxycycline 100 mg twice a day to continue for 10 days. Please complete this entire course. You may also have bacterial vaginosis I have given you a prescription for metronidazole 500 mg 3 times a day to treat this. Drinking alcohol of any form with metronidazole will give you a horrible flushed sensation and make you vomit. Both of these prescriptions have been electronically transmitted to [facility] for you to pickler helper today. We did test for gonorrhea, chlamydia, HIV and syphilis, all standard sexually transmitted infection screening tests. If these return positive you will be contacted. I would recommend talking with your recent sexual partner and suggest that he see his physician for sexually transmitted infection testing as well. I would also recommend the regular use of condoms with new sexual partners to prevent sexually transmitted infections as well as unwanted pregnancies. If you are developing worsening fevers, worsening pain, vomiting to the point that your unable to keep your medications down you do need to return to the emergency room for further evaluation. I hope you feel better. Prescriptions: New doxycycline hyclate 100 mg capsule 100 mg PO BID Qty: 20 RF: 0 metronidazole 500 mg tablet 500 mg PO TID Qty: 21 RF: 0 No Action medroxyprogesterone [Depo-Provera] 400 MG/1 ML suspension 400 mg IM Qty: 0 RF: 0 lisinopril 40 mg tablet 40 mg PO DAILY RF: 0 ibuprofen 800 mg tablet 800 mg PO TID PRN (Reason: pain) Qty: 20 RF: 0 Referrals: [place] PA-C [Primary Care Provider] -
[2020-04-28 07:51] LABS: Add Manual Diff / Slide Review NO; Basophils Absolute Auto 100 /uL (0-100); Basophils Percent Auto 0.7 % (0-2); Eosinophils Absolute Auto 300 /uL (0-450); Eosinophils Percent Auto 3.3 % (2-4); Hematocrit 40.5 % (36-46); Lymphocytes Absolute Auto 2000 /uL (1100-4500); Lymphocytes Percent Auto 24.4 % (25-40); Mean Corpuscular HGB Conc 34.7 % (30-36); Mean Corpuscular Hemoglobin 31.4 PG (26-34); Mean Corpuscular Volume 90.5 fL (80-100); Monocytes Absolute Auto 800 /uL (0-900); Monocytes Percent Auto 9.6 % (3-14); Neutrophils Absolute Auto 5200 /uL (1500-7000); Platelet Count 287 X10^3/uL (150-400); Red Blood Cell Count 4.47 X10^6/uL (4.0-5.2); Red Cell Distribution Width 13.6 % (11.6-14.8); White Blood Cell Count 8.3 X10^3/uL (4.5-11.0)
[2020-04-28 07:59] LABS: Alanine Aminotransferase 67 IU/L (<35); Albumin 3.8 g/dL (3.5-5.0); Albumin Globulin Ratio 1.4 (1.0-2.8); Alkaline Phosphatase 64 U/L (38-126); Aspartate Aminotransferase 48 IU/L (14-36); BUN Creatinine Ratio 12.5 (6-22); Bilirubin Total 0.3 mg/dL (0.2-1.3); Blood Urea Nitrogen 9 mg/dL (7-17); Calcium 9.1 mg/dL (8.4-10.2); Carbon Dioxide 23 mmol/L (22-32); Chloride 112 mmol/L (98-107); Estimated Glomerular Filt Rate > 60.0 mL/min (>60); Globulin 2.8 g/dL (1.7-4.1); Glucose 98 mg/dL (70-100); HEMOLYSIS < 15 (0-50); Lipase 130 U/L (23-300); Sodium 140 mmol/L (137-145); Total Protein 6.6 g/dL (6.3-8.2)
[2020-04-28] MEDS: DOXYCYCLINE HYCLATE 100 MG TABLET PO (08:03)
[2020-04-28] MEDS: KETOROLAC 60 MG/2 ML VIAL 15 MG IV (08:03)
[2020-04-28] MEDS: CEFTRIAXONE 1 GM/50 ML FROZ.PIGGY IV (08:04)
[2020-04-28 08:52] VITALS: BP 101/55; PULSE 73; RESP 14; O2SAT 100
[2020-04-28 09:15] LABS: HIV 1 & 2 Ab/Ag 4th Gen Combo NEGATIVE (NEGATIVE)
[2020-04-28 09:18] LABS: Urine N gonorrhoeae NOT DETECTED
[2020-04-28 09:20] LABS: Urine Chlamydia NOT DETECTED
[2020-04-28 09:30] VITALS: BP 100/55; PULSE 75; RESP 14; O2SAT 99
[2020-04-28 10:34] VITALS: BP 100/55; PULSE 76; RESP 14; O2SAT 100
[2020-05-01 06:40] LABS: Treponema pallidum Antibodies Non Reactive (Non Reactive)
== END 2020-04-28 10:44 | disposition home or self-care (01) ==
PROVIDERS: Emergency Medicine; Emergency Provider Emergency Medicine; PCP Physician Assistant
DX: N73.0 Acute parametritis and pelvic cellulitis (principal); N76.0 Acute vaginitis; R87.619 Unspecified abnormal cytological findings in specimens from cervix uteri
CPT/HCPCS: 36415; 80053; 81003; 81025; 83690; 85025; 86780; 87210; 87220; 87389; 87491; 87591; 96365; 96375; 99284; J1885

== ENCOUNTER 2020-05-30 02:41 | Emergency (ER) | payer MEDICAID, SELFPAY ==
[2020-05-30] VITALS (13 sets, daily range): BP systolic 125–174; BP diastolic 76–110; PULSE 68–97; RESP 16–29; TEMP 36.8; O2SAT 99–100; BMI 45.9
--- NOTE | 2020-05-30 02:41 | DI.RAD.S_ITS ---
PROCEDURE: XR CHEST 1V INDICATIONS: chest pain TECHNIQUE: One view of the chest was acquired. COMPARISON: [facility], , CHEST 2 VIEW, 09/11/2009, 9:25. FINDINGS: Surgical changes and devices: None. Lungs and pleura: Lungs are clear. No pleural effusions or pneumothorax. Mediastinum: Mediastinal contours appear normal. Heart size is normal. Bones and chest wall: No suspicious bony lesions. Overlying soft tissues appear unremarkable. IMPRESSION: No acute cardiopulmonary disease process. Dictated by: Carolina Brown MD, PhD on 05/30/2020 at 8:44 Approved by: Carolina Brown MD, PhD on 05/30/2020 at 8:44
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
[2020-05-30 02:52] LABS: Add Manual Diff / Slide Review NO; Basophils Absolute Auto 100 /uL (0-100); Basophils Percent Auto 0.9 % (0-2); Eosinophils Absolute Auto 100 /uL (0-450); Eosinophils Percent Auto 0.8 % (2-4); Hematocrit 41.4 % (36-46); Hemoglobin 13.7 g/dL (12.0-16.0); Lymphocytes Absolute Auto 3300 /uL (1100-4500); Lymphocytes Percent Auto 24.6 % (25-40); Mean Corpuscular HGB Conc 33.2 % (30-36); Mean Corpuscular Hemoglobin 29.8 PG (26-34); Mean Corpuscular Volume 89.9 fL (80-100); Monocytes Absolute Auto 900 /uL (0-900); Monocytes Percent Auto 6.9 % (3-14); Neutrophils Absolute Auto 8800 /uL (1500-7000); Neutrophils Percent Auto 66.8 % (50-75); Platelet Count 288 X10^3/uL (150-400); Red Cell Distribution Width 13.5 % (11.6-14.8); White Blood Cell Count 13.2 X10^3/uL (4.5-11.0)
[2020-05-30 03:04] LABS: Alanine Aminotransferase 95 IU/L (<35); Albumin 3.8 g/dL (3.5-5.0); Albumin Globulin Ratio 1.3 (1.0-2.8); Alkaline Phosphatase 63 U/L (38-126); Aspartate Aminotransferase 58 IU/L (14-36); BUN Creatinine Ratio 16.5 (6-22); Bilirubin Total 0.3 mg/dL (0.2-1.3); Blood Urea Nitrogen 14 mg/dL (7-17); Calcium 8.8 mg/dL (8.4-10.2); Carbon Dioxide 21 mmol/L (22-32); Chloride 113 mmol/L (98-107); Creatine Kinase 85 U/L (30-135); Estimated Glomerular Filt Rate > 60.0 mL/min (>60); Glucose 97 mg/dL (70-100); HEMOLYSIS 28 (0-50); Lipase 123 U/L (23-300); Potassium 3.7 mmol/L (3.4-5.1); Sodium 140 mmol/L (137-145); Total Protein 6.8 g/dL (6.3-8.2)
[2020-05-30] MEDS: KETOROLAC 60 MG/2 ML VIAL 15 MG IV (03:08)
[2020-05-30] MEDS: SODIUM CHLORIDE 0.9% 1,000 ML 150 ML IV (03:09)
[2020-05-30 03:13] LABS: D Dimer < 200 ng/mL (<230)
[2020-05-30 03:17] LABS: NT-proBNP (BNP-Adult 18+) 69 pg/mL (<125); Troponin I 0.012 ng/mL (0.01-0.034)
[2020-05-30] MEDS: lisinopriL 20 MG TABLET 40 MG PO (03:32)
[2020-05-30 05:08] LABS: Troponin I < 0.012 ng/mL (0.01-0.034)
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
== END 2020-05-30 05:25 | disposition home or self-care (01) ==
PROVIDERS: Emergency Provider Emergency Medicine; PCP Physician Assistant
DX: R07.89 Other chest pain (principal); I10 Essential (primary) hypertension
CPT/HCPCS: 36415; 71045; 80053; 81003; 81025; 82550; 83690; 83880; 84484; 85025; 85379; 93005; 96361; 96374; 99284; 99285; J1885

== ENCOUNTER → 2021-05-04 12:46 | Outpatient (CLI) | payer MEDICAID, SELFPAY ==
--- NOTE | 2021-05-04 12:48 | DI.US.S_ITS ---
PROCEDURE: US PELVIC COMPLETE INDICATIONS: Secondary amenorrhea. TECHNIQUE: Real-time scanning was performed of the pelvic organs, with image documentation. Additional endovaginal scanning was necessary due to incomplete visualization of the adnexal and endometrial structures by transabdominal scanning. COMPARISON: [facility], US, US PELVIC COMPLETE, 08/16/2019, 0:00. FINDINGS: Uterus: Uterus is normal in size at 6.5 x 3.3 x 5.3 cm. Uterus is retroverted. Uterus has homogeneous echotexture. The endometrium measures 1.0 mm in combined thickness. Ovaries: Right ovary measures 4.3 x 1.9 x 2.8 centimeters. Left ovary measures 3.2 x 1.4 x 1.2 centimeters. There is a 3.5 x 1.8 x 2.4 centimeter complex cyst in the right ovary which contains thin internal septation/internal cysts. Left ovary is sonographically normal. Other: No pathologic free abdominal or pelvic fluid. IMPRESSION: 1. Uterus is sonographically normal. 2. 3.5 x 1.8 x 2.4 centimeter complex right ovarian cyst. Recommend follow-up ultrasound in 4-6 weeks to ensure resolution of the lesion. 3. Left ovary is sonographically normal. Dictated by: Carolina Brown MD, PhD on 05/15/2021 at 10:21 Approved by: Carolina Brown MD, PhD on 05/15/2021 at 10:26
== END ==
PROVIDERS: PCP Physician Assistant; Referring Provider Obstetrics & Gynecology; Visit Provider Obstetrics & Gynecology
DX: N91.1 Secondary amenorrhea (principal); N83.291 Other ovarian cyst, right side
CPT/HCPCS: 76856

== ENCOUNTER 2021-11-16 17:51 | Emergency (ER) | payer MEDICAID, OTHER, SELFPAY ==
[2021-11-16 18:11] VITALS: BP 201/97; PULSE 98; RESP 18; TEMP 36.8; O2SAT 99; BMI 31.1
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
[2021-11-16 18:51] LABS: Pregnancy Test Urine Negative (Negative)
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
[2021-11-16] MEDS: HYDROCODONE/ACET 5/325 TABLET 1 TAB PO ×2 (19:20→20:11)
[2021-11-16] MEDS: KETOROLAC 30 MG/ML VIAL 15 MG IM (19:21)
[2021-11-16] MEDS: methocarbamoL 500 MG TABLET PO ×2 (19:21→20:11)
[2021-11-16 19:24] LABS: Bacteria Urine None Seen; Culture Indicated Urine Cult Not Indicated; RBC Urine 0-1/HPF (0-5/HPF); Squamous Epithelial Cell Urine 1-5 /HPF (0-5/HPF); WBC Urine 1-5/HPF (0-5/HPF)
[2021-11-16] MEDS: TET,DIPH,PERTUSS(ACELL),VAC/PF 0.5 ML SYRINGE IM (19:24)
[2021-11-16 20:14] VITALS: BP 168/99; PULSE 82; RESP 16; O2SAT 99
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
== END 2021-11-16 20:45 | disposition home or self-care (01) ==
PROVIDERS: Emergency Provider Nurse Practitioner Critical Care Medicine; PCP Physician Assistant
DX: M79.89 Other specified soft tissue disorders (principal); S09.302A Unspecified injury of left middle and inner ear, initial encounter; S40.022A Contusion of left upper arm, initial encounter; S40.021A Contusion of right upper arm, initial encounter; S10.91XA Abrasion of unspecified part of neck, initial encounter; S20.212A Contusion of left front wall of thorax, initial encounter; S30.1XXA Contusion of abdominal wall, initial encounter; S60.011A Contusion of right thumb without damage to nail, initial encounter; S80.12XA Contusion of left lower leg, initial encounter; S80.11XA Contusion of right lower leg, initial encounter; S20.229A Contusion of unspecified back wall of thorax, initial encounter; F17.210 Nicotine dependence, cigarettes, uncomplicated; Y04.8XXA Assault by other bodily force, initial encounter; Z23 Encounter for immunization
CPT/HCPCS: 70450; 70486; 81003; 81015; 81025; 87086; 90471; 96372; 99284; 90715; J1885

== ENCOUNTER 2022-02-27 16:27 | Emergency (ER) | payer OTHER, MEDICAID, SELFPAY ==
[2022-02-27 16:46] VITALS: BP 153/84; PULSE 88; RESP 18; TEMP 36.3; O2SAT 100; BMI 38.1
== END 2022-02-27 17:45 | disposition left against medical advice (07) ==
PROVIDERS: Emergency Provider Emergency Medicine; PCP Physician Assistant
DX: R50.9 Fever, unspecified (principal); R52 Pain, unspecified
CPT/HCPCS: 99281

== ENCOUNTER 2023-06-03 01:36 | Emergency (ER) | payer OTHER, MEDICAID, SELFPAY ==
[2023-06-03 01:45] VITALS: BP 184/102; PULSE 78; RESP 18; TEMP 36.9; O2SAT 98; BMI 37.0
--- NOTE | 2023-06-03 02:05 | ED_ITS ---
HPI - Headache General Chief Complaint: Headache Stated Complaint: headache, sore throat Time Seen by Provider: 06/03/23 01:49 Mode of arrival: Ambulatory History of Present Illness HPI Narrative: 37-year-old woman recently diagnosed with hypertension started medications yesterday presents with 48 hours of upper respiratory symptoms. She notes low- grade fevers mild myalgias slight cough mild runny nose. She is not complaining of significant headache, nausea, vomiting, abdominal pain, palpitations or dyspnea. There is no wheezing. She notes that her [id number] daughter has similar symptoms with a similar time frame. Related Data Previous Rx's Medication Instructions Recorded ibuprofen 800 mg tablet 800 mg PO TID PRN pain #20 tabs 05/29/19 hydrocodone 5 mg-acetaminophen 325 1 tab PO Q6-8H PRN pain #10 tabs 11/16/21 mg tablet methocarbamol 500 mg tablet 500 mg PO TID PRN muscle aches #14 11/16/21 tabs benzonatate 200 mg capsule 200 mg PO BID-TID PRN cough #14 06/03/23 caps ibuprofen 400 mg tablet 400 mg PO Q6H PRN fever or pain 06/03/23 #20 tabs Allergies Allergy/AdvReac Type Severity Reaction Status Date / Time codeine [CODEINE] Allergy Intermediate Hives Verified 06/03/23 01:51 Penicillins [PENICILLINS] Allergy Intermediate Hives Verified 06/03/23 01:51 Review of Systems Review of Systems Narrative: Pertinent positive and negative findings as per HPI Patient History Medical History (Updated 06/03/23 @ 02:10 by Jelly Kellye MD) Hypertension Social History Smoking Status: Current every day smoker Smoking Status: Current every day smoker tobacco type: cigarettes alcohol intake frequency: other Substance Use Type: marijuana Exam Initial Vital Signs Initial Vital Signs: Vital Signs Temperature 98.5 F 06/03/23 01:45 Pulse Rate 78 06/03/23 01:45 Respiratory Rate 18 06/03/23 01:45 Blood Pressure 184/102 H 06/03/23 01:45 Pulse Oximetry 98 06/03/23 01:45 Oxygen Delivery Method Room Air 06/03/23 01:45 General: Healthy appearing, in no acute distress. Able to give a complete and coherent history. Slight cough minor nasal congestion HEENT: Moist mucous membranes, normal sclera with reactive pupils, Neck: No cervical adenopathy, supple Respiratory: Lungs are clear to auscultation, no wheezing no rales no rhonchi. Full and symmetrical air movement Cardiac: Regular rate and rhythm no murmurs no bruits Abdomen: Soft, nontender, good bowel tones, no flank pain Skin: Warm and dry, no rashes Neurologic: Grossly neurologically intact with no obvious asymmetries or abnormalities Extremities: No lower extremity Psych: Cooperative, appropriate insight and affect Course Orders Ordered: Discontinued Medications Benzonatate (Benzonatate 100 Mg Capsule) 100 mg PO NOW ONE Stop: 06/03/23 02:05 Vital Signs Vital signs: Vital Signs - 8 hr 06/03/23 01:45 Temperature 98.5 F Pulse Rate 78 Respiratory Rate 18 Blood Pressure 184/102 H Pulse Oximetry 98 Oxygen Delivery Method Room Air MDM - Headache MDM Narrative Medical decision making narrative: CC: Upper respiratory symptoms for 48 hours Complicating co-morbidities: Blood pressure medication started yesterday Data collected from: patient, Medical records reviewed: Typically seen at the [facility], records not available Differential considered: Upper respiratory infection, possible reaction to medication started, mom isn't sure which blood pressure medication she is currently taking Exam documented above, pertinent findings include: Minor cough ears are clear, no pharyngeal erythema, no wheeze no rhonchi Treatments: Tessalon Discussion: 37-year-old woman with 48 hours of minor upper respiratory symptoms. Will treat with Tessalon, prescription for ibuprofen, recommended that she continue her blood pressure medication. Suggested staying home from work to avoid infecting coworkers for the next 3 days. Work note is given. She is safe for discharge home MIPS: Apprpriate Treatment for Patients with URI [x] The patient was diagnosed with upper respiratory infection and was not prescribed or dispensed an antibiotic. [SATISFIES MIPS PERFORMANCE] Discharge Plan Departure Patient Disposition: Home Clinical Impression: Viral syndrome Instructions: DI for Viral Upper Respiratory Infection -- Adult Activity Restrictions/Additional Instructions: Thank you for coming in today You have all of the signs and symptoms of minor upper respiratory infection. I have given you a prescription for some Tessalon Perles to use for cough as well as ibuprofen to help with aches and pains. I would recommend staying home from work for the next 72 hours to avoid infecting coworkers. Prescriptions have been electronically transmitted to [facility] If you find that you have been worsening symptoms or new findings would be a ppropriate to return to the emergency department Prescriptions: New ibuprofen 400 mg tablet 400 mg PO Q6H PRN (Reason: fever or pain) Qty: 20 0RF benzonatate 200 mg capsule 200 mg PO BID-TID PRN (Reason: cough) Qty: 14 0RF No Action methocarbamol 500 mg tablet 500 mg PO TID PRN (Reason: muscle aches) Qty: 14 0RF hydrocodone-acetaminophen 5-325 mg tablet 1 tab PO Q6-8H PRN (Reason: pain) Qty: 10 0RF ibuprofen 800 mg tablet 800 mg PO TID PRN (Reason: pain) Qty: 20 0RF Referrals: [place] [place] PA-C [Primary Care Provider] - Stand Alone Forms: Patient Portal/API
[2023-06-03] MEDS: BENZONATATE 100 MG CAPSULE PO (02:11)
[2023-06-03] MEDS: ACETAMINOPHEN 325 MG TABLET 975 MG PO (02:14)
[2023-06-03 02:18] VITALS: BP 169/100
== END 2023-06-03 02:19 | disposition home or self-care (01) ==
PROVIDERS: Emergency Provider Emergency Medicine; PCP Physician Assistant
DX: B34.9 Viral infection, unspecified (principal)

== ENCOUNTER 2023-06-03 12:04 | Emergency (ER) | payer OTHER, MEDICAID, SELFPAY ==
[2023-06-03 12:28] VITALS: BP 196/111; PULSE 88; RESP 19; TEMP 36.8; O2SAT 99; BMI 37.2
--- NOTE | 2023-06-03 12:36 | DI.RAD.S_ITS ---
PROCEDURE: XR ANKLE RT MIN 3V INDICATIONS: fall TECHNIQUE: 3 views of the ankle were acquired. COMPARISON: [facility], CR, XR ANKLE RT MIN 3V, 02/15/2019, 12:29. FINDINGS: Bones: No fractures or dislocations. Ankle mortise is normally aligned. No suspicious bony lesions. Soft tissues: No tibiotalar joint effusion. Achilles tendon appears normal. IMPRESSION: Unremarkable right ankle radiographs Approved by: Aime Pitts M.D. on 06/03/2023 at 12:08
--- NOTE | 2023-06-03 13:31 | ED.LOWEXIN ---
HPI - Extremity Injury (Lower) General Chief Complaint: Extremity Injury, Lower Stated Complaint: fall on sidewalk Time Seen by Provider: 06/03/23 13:07 Source: patient Mode of arrival: Family Vehicle Related Data Previous Rx's Medication Instructions Recorded ibuprofen 800 mg tablet 800 mg PO TID PRN pain #20 tabs 05/29/19 hydrocodone 5 mg-acetaminophen 325 1 tab PO Q6-8H PRN pain #10 tabs 11/16/21 mg tablet methocarbamol 500 mg tablet 500 mg PO TID PRN muscle aches #14 11/16/21 tabs benzonatate 200 mg capsule 200 mg PO BID-TID PRN cough #14 06/03/23 caps benzonatate 200 mg capsule 200 mg PO BID-TID PRN cough #14 06/03/23 caps ibuprofen 400 mg tablet 400 mg PO Q6H PRN fever or pain 06/03/23 #20 tabs ibuprofen 600 mg tablet (IBU) 600 mg PO QID PRN fever #20 tabs 06/03/23 tramadol 50 mg tablet 50 mg PO Q8H PRN pain 3 days #9 06/03/23 tabs Allergies Allergy/AdvReac Type Severity Reaction Status Date / Time codeine [CODEINE] Allergy Intermediate Hives Verified 06/03/23 12:28 Penicillins [PENICILLINS] Allergy Intermediate Hives Verified 06/03/23 12:28 Patient History Medical History (Updated 06/03/23 @ 14:50 by Em Wen PA-C) Hypertension Social History Smoking Status: Current every day smoker Smoking Status: Current every day smoker tobacco type: cigarettes alcohol intake frequency: other Substance Use Type: marijuana Exam Initial Vital Signs Initial Vital Signs: Vital Signs Temperature 98.3 F 06/03/23 12:28 Pulse Rate 88 06/03/23 12:28 Respiratory Rate 19 06/03/23 12:28 Blood Pressure 196/111 H 06/03/23 12:28 Pulse Oximetry 99 06/03/23 12:28 Oxygen Delivery Method Room Air 06/03/23 12:28 Course Orders Ordered: ED Orders 06/03/23 12:33 Consult to [employer]ER - Supervisor Grips Stat 06/03/23 12:36 XR ankle RT min 3V Stat 06/03/23 13:44 XR foot RT min 3V Stat Discontinued Medications Ketorolac Tromethamine (Ketorolac 30 Mg/Ml Vial) 30 mg IM NOW ONE Stop: 06/03/23 13:45 Last Admin: 06/03/23 14:00 Dose: 30 mg Documented By: AMV Vital Signs Vital signs: Vital Signs - 8 hr 06/03/23 12:28 Temperature 98.3 F Pulse Rate 88 Respiratory Rate 19 Blood Pressure 196/111 H Pulse Oximetry 99 Oxygen Delivery Method Room Air MDM - Extremity Injury (Lower) Imaging Data Extremity x-ray #1: Radiologist's Impression: [address] [address] XRay Report Signed Patient: Elizabeth Real MR#: [id number] : 1985 Acct:[id number] Age/Sex: 37 / F Date of Service: 06/03/23 Loc: ED Accession Number: [id number] ?? Procedure: XR ankle RT min 3V Ordering Provider: Bull Canas MD PROCEDURE:? XR ANKLE RT MIN 3V ? INDICATIONS:? fall ? TECHNIQUE:? 3 views of the ankle were acquired.? ? COMPARISON:? [facility], CR, XR ANKLE RT MIN 3V, 02/15/2019, 12:29. ? FINDINGS:? ? Bones:? No fractures or dislocations.? Ankle mortise is normally aligned.? No suspicious bony lesions.? ? Soft tissues:? No tibiotalar joint effusion.? Achilles tendon appears normal.? ? ? IMPRESSION:? Unremarkable right ankle radiographs ? Approved by: Aime Pitts M.D. on 06/03/2023 at 12:08? Discharge Plan Departure Patient Disposition: Home Clinical Impression: Sprain of ankle, right, Sprain of foot, right Activity Restrictions/Additional Instructions: *You have been diagnosed with [ankle and foot sprain and strain] *What to do: *Please continue to take your regular medications as directed. [ 1] New medication prescriptions sent to your pharmacy: [Tramadol] [ ] New medication written as a paper prescription [ ] No new medications given *Please follow up with your primary care provider in 2-3 days, call for an appointment. Let them know you were seen in the Emergency Department and that we ask that you be seen in follow up. We will electronically transmit a record of today's note if your PCP is in our system. You did sustain a sprain of your foot injury ankle today we placed you in a orthopedic boot and provided with crutches, there is no evidence of fracture, however if you have persistent pain within 5-7 days' time that is not improving at all with treatment with rest ice compression elevation staying off of it I recommend you see your primary care provider and consider having repeat imaging done. In the meantime please do your best not to walk on the affected extremity as it will heal faster and better if you are not putting weight on it, you can wear an Fletcher wrap at night and please wear the supportive boot during the day and use crutches to stay off of your leg. You can follow-up with your primary care provider for this, I encouraged her to take Tylenol and ibuprofen for pain, I did prescribe a small amount of tramadol as he seemed to be quite uncomfortable 2nd to pain but please only use this if Tylenol and ibuprofen are ineffective. *If you do not have a primary care provider please contact the [facility] Resource line at [phone]. They will ask some questions about your medical history and help get you set up with a doctor in the community. *Return to Emergency Department if you should have any new, worsening or concerning symptoms, such as [fever greater than 101 F, shaking chills, worsening pain, persistent vomiting or other bothersome symptoms] Prescriptions: New tramadol 50 mg tablet 50 mg PO Q8H PRN (Reason: pain) 3 Days Qty: 9 0RF No Action methocarbamol 500 mg tablet 500 mg PO TID PRN (Reason: muscle aches) Qty: 14 0RF hydrocodone-acetaminophen 5-325 mg tablet 1 tab PO Q6-8H PRN (Reason: pain) Qty: 10 0RF ibuprofen 800 mg tablet 800 mg PO TID PRN (Reason: pain) Qty: 20 0RF ibuprofen 400 mg tablet 400 mg PO Q6H PRN (Reason: fever or pain) Qty: 20 0RF benzonatate 200 mg capsule 200 mg PO BID-TID PRN (Reason: cough) Qty: 14 0RF benzonatate 200 mg capsule 200 mg PO BID-TID PRN (Reason: cough) Qty: 14 0RF ibuprofen [IBU] 600 mg tablet 600 mg PO QID PRN (Reason: fever) Qty: 20 0RF Referrals: Fatmata Hills PA-C [Primary Care Provider] - Stand Alone Forms: Patient Portal/API
--- NOTE | 2023-06-03 13:44 | DI.RAD.S_ITS ---
PROCEDURE: XR FOOT RT MIN 3V INDICATIONS: distal and proximal 1-3 metatarsal tender/swelling TECHNIQUE: 3 views of the foot were acquired. COMPARISON: None. FINDINGS: Bones: No fractures or dislocations. No suspicious bony lesions. Soft tissues: No tibiotalar joint effusion. Achilles tendon appears normal. IMPRESSION: No acute right foot fracture or dislocation. Dictated by: Zeeshan Dorado M.D. on 06/03/2023 at 14:45 Approved by: Zeeshan Dorado M.D. on 06/03/2023 at 14:46
--- NOTE | 2023-06-03 13:54 | ED.LOWEXIN ---
HPI - Extremity Injury (Lower) <Em Wen PA-C - Last Filed: 06/03/23 17:39> General Chief Complaint: Extremity Injury, Lower Stated Complaint: fall on sidewalk Time Seen by Provider: 06/03/23 13:07 Source: patient Mode of arrival: Family Vehicle History of Present Illness HPI Narrative: 37-year-old woman presents with concern for right ankle pain and foot pain. Patient states about an hour and half ago she was coming down some steps holding her [id number] to her chest and she missed a step with her right foot and went down to the ground. She states she was focusing so hard on keeping her baby safe that she did not pay any attention to what her body was doing she thinks she rolled her right ankle in the process and states it has been very painful since then. She describes the pain as in the front of her ankle and the right side of her ankle over the ankle bone, she also has some pain at the base of her 1st and 2nd toes. She denies numbness or tingling but has had reduced range of motion and has not been able to really put weight on it without a lot of pain. She did have broken bones in her foot on the same side 2 years ago for which she was seen in [place]. She denies any other injuries from the fall loss of consciousness or any other complaints or concerns. She notes the pain is constant an intense and she did not take anything for pain prior to coming to the ER. Related Data Previous Rx's Medication Instructions Recorded ibuprofen 800 mg tablet 800 mg PO TID PRN pain #20 tabs 05/29/19 hydrocodone 5 mg-acetaminophen 325 1 tab PO Q6-8H PRN pain #10 tabs 11/16/21 mg tablet methocarbamol 500 mg tablet 500 mg PO TID PRN muscle aches #14 11/16/21 tabs benzonatate 200 mg capsule 200 mg PO BID-TID PRN cough #14 06/03/23 caps benzonatate 200 mg capsule 200 mg PO BID-TID PRN cough #14 06/03/23 caps benzonatate 200 mg capsule 200 mg PO BID-TID PRN cough #14 06/03/23 caps ibuprofen 400 mg tablet 400 mg PO Q6H PRN fever or pain 06/03/23 #20 tabs ibuprofen 600 mg tablet (IBU) 600 mg PO Q6H PRN fever #20 tabs 06/03/23 ibuprofen 600 mg tablet (IBU) 600 mg PO QID PRN fever #20 tabs 06/03/23 tramadol 50 mg tablet 50 mg PO Q8H PRN pain 3 days #9 06/03/23 tabs Allergies Allergy/AdvReac Type Severity Reaction Status Date / Time codeine [CODEINE] Allergy Intermediate Hives Verified 06/03/23 12:28 Penicillins [PENICILLINS] Allergy Intermediate Hives Verified 06/03/23 12:28 Review of Systems <Em Wen PA-C - Last Filed: 06/03/23 17:39> Review of Systems Narrative: See HPI Patient History <Em Wen PA-C - Last Filed: 06/03/23 17:39> Medical History (Updated 06/03/23 @ 14:50 by Em Wen PA-C) Hypertension Social History Smoking Status: Current every day smoker Smoking Status: Current every day smoker tobacco type: cigarettes alcohol intake frequency: other Substance Use Type: marijuana Exam <Em Wen PA-C - Last Filed: 06/03/23 17:39> Narrative Exam Narrative: GENERAL: [37] year old patient appears stated age. Well-developed patient, in moderate distress, in pain. HEAD: Atraumatic. Normocephalic. EYES: Pupils equal round and reactive. Extraocular motions intact. No scleral icterus. No injection or drainage. ENT: Nose without bleeding, purulent drainage. Airway patent. NECK: Trachea midline. Non tender CARDIOVASCULAR: Regular rate and rhythm without murmurs, gallops, or rubs. RESPIRATORY: Clear to auscultation. Breath sounds equal bilaterally. Breathing slightly quickly uncomfortable appearing 2nd to pain, No wheezes, rales, or rhonchi. GASTROINTESTINAL: Abdomen soft, non-tender, nondistended. EXTREMITIES: There is mild swelling about the right ankle and lateral ankle, there is some tenderness over the lateral malleolus, there is [id number] swelling with tenderness of the tarsals and distal metatarsals 1 through 3 there is reduced range of motion at the ankle and increased pain with movement of the toes, there is appreciable swelling with a developing bruise on the patient's right lateral inferior tovar with associated tenderness over the mid distal fibula, no proximal fibula tenderness, no tenderness of the knee. Normal active range of motion of the knee. Skin color is pink cap refill is less than 2 seconds. No other edema or joint tenderness. BACK: Nontender without deformity or crepitance. No flank tenderness. NEURO: AOx3. SKIN: No rash or erythema of visible areas Initial Vital Signs Initial Vital Signs: Vital Signs Temperature 98.3 F 06/03/23 12:28 Pulse Rate 88 06/03/23 12:28 Respiratory Rate 19 06/03/23 12:28 Blood Pressure 196/111 H 06/03/23 12:28 Pulse Oximetry 99 06/03/23 12:28 Oxygen Delivery Method Room Air 06/03/23 12:28 <Bull Canas MD - Last Filed: 06/04/23 08:30> Initial Vital Signs Initial Vital Signs: Vital Signs Temperature 98.3 F 06/03/23 12:28 Pulse Rate 88 06/03/23 12:28 Respiratory Rate 19 06/03/23 12:28 Blood Pressure 196/111 H 06/03/23 12:28 Pulse Oximetry 99 06/03/23 12:28 Oxygen Delivery Method Room Air 06/03/23 12:28 Course <Em Wen PA-C - Last Filed: 06/03/23 17:39> Orders Ordered: Discontinued Medications Ketorolac Tromethamine (Ketorolac 30 Mg/Ml Vial) 30 mg IM NOW ONE Stop: 06/03/23 13:45 Last Admin: 06/03/23 14:00 Dose: 30 mg Documented By: AMV Vital Signs Vital signs: Vital Signs - 8 hr 06/03/23 12:28 Temperature 98.3 F Pulse Rate 88 Respiratory Rate 19 Blood Pressure 196/111 H Pulse Oximetry 99 Oxygen Delivery Method Room Air <Bull Canas MD - Last Filed: 06/04/23 08:30> Orders Ordered: Discontinued Medications Ketorolac Tromethamine (Ketorolac 30 Mg/Ml Vial) 30 mg IM NOW ONE Stop: 06/03/23 13:45 Last Admin: 06/03/23 14:00 Dose: 30 mg Documented By: AMV Vital Signs Vital signs: Vital Signs - 8 hr 06/03/23 12:28 Temperature 98.3 F Pulse Rate 88 Respiratory Rate 19 Blood Pressure 196/111 H Pulse Oximetry 99 Oxygen Delivery Method Room Air MDM - Extremity Injury (Lower) <Em Wen PA-C - Last Filed: 06/03/23 17:39> Differential Diagnosis Differential diagnosis: Likely ankle sprain and strain, ankle fracture and other (Foot sprain, strain, fracture) Medical Records Attestation: I reviewed the patient's medical records. Imaging Data Extremity x-ray #1: My Impression: Agree with Radiology interpretation Radiologist's Impression: [address] [address] XRay Report Signed Patient: Elizabeth Real MR#: [id number] : 1985 Acct:[id number] Age/Sex: 37 / F Date of Service: 06/03/23 Loc: ED Accession Number: [id number] ?? Procedure: XR ankle RT min 3V Ordering Provider: Bull Canas MD PROCEDURE:? XR ANKLE RT MIN 3V ? INDICATIONS:? fall ? TECHNIQUE:? 3 views of the ankle were acquired.? ? COMPARISON:? [facility], , XR ANKLE RT MIN 3V, 02/15/2019, 12:29. ? FINDINGS:? ? Bones:? No fractures or dislocations.? Ankle mortise is normally aligned.? No suspicious bony lesions.? ? Soft tissues:? No tibiotalar joint effusion.? Achilles tendon appears normal.? ? ? IMPRESSION:? Unremarkable right ankle radiographs ? Approved by: Aime Pitts M.D. on 06/03/2023 at 12:08? Extremity x-ray #2: My Impression: Agree with Radiology interpretation Radiologist's Impression: [address] [address] XRay Report Signed Patient: Elizabeth Real MR#: [id number] : 1985 Acct:[id number] Age/Sex: 37 / F Date of Service: 06/03/23 Loc: ED Accession Number: [id number] ?? Procedure: XR foot RT min 3V Ordering Provider: Em Wen P.A-C PROCEDURE:? XR FOOT RT MIN 3V ? INDICATIONS:? distal and proximal 1-3 metatarsal tender/swelling ? TECHNIQUE:? 3 views of the foot were acquired.? ? COMPARISON:? None. ? FINDINGS:? ? Bones:? No fractures or dislocations.? No suspicious bony lesions.? ? Soft tissues:? No tibiotalar joint effusion.? Achilles tendon appears normal.? ? ? IMPRESSION:? No acute right foot fracture or dislocation. ? ? Dictated by: Zeeshan Dorado M.D. on 06/03/2023 at 14:45 ? ? Approved by: Zeeshan Dorado M.D. on 06/03/2023 at 14:46?? Treatment and disposition Shared decision making:: Shared decision-making was used to determine the patient's plan for care and evaluation in the emergency department today and plan for outpatient follow-up. MDM Narrative Medical decision making narrative: 37-year-old woman presents with concern for right ankle and foot pain after she sustained a fall when she missed a step and rolled her right ankle going down to the ground trying to protect her [id number] who she was holding. She states her child was uninjured and she did not sustain any other injuries but has been having difficulty walking and significant pain in her right foot and ankle since the event. She did not take anything for pain prior to arrival to the emergency department, was given Tylenol in triage and Toradol after evaluation by provider. Initial x-rays of ankle returned negative, patient does have notable soft tissue swelling and a forming bruise over her right anterolateral low calf, she has no proximal fibular tenderness and x-rays of tibia fibula are not obtained however because she has tenderness of the foot bones additional x-ray is obtained to further evaluate for possible fracture, she also has a history of fracture of the right foot although she is on clear exactly what her injury was. Exam and history are most suspicious for a sprain/strain of both the foot and ankle. Patient endorsed significant pain but no numbness or tingling, she had reduced range of motion 2nd to pain but good capillary refill and skin tone as well as pedal pulses, with no obvious deformity. Foot x-ray also returns unremarkable. Due to pain patient is given a short course prescription of tramadol to be taken Tylenol and ibuprofen effective, advised to use RI CE and follow up with primary care provider, be nonweightbearing for 7-10 days longer if she has persistent pain. Return precautions provided, follow-up plan discussed, all questions answered. Discharge Plan Departure Patient Disposition: Home Clinical Impression: Sprain of ankle, right, Sprain of foot, right Activity Restrictions/Additional Instructions: *You have been diagnosed with [ankle and foot sprain and strain] *What to do: *Please continue to take your regular medications as directed. [ 1] New medication prescriptions sent to your pharmacy: [Tramadol] [ ] New medication written as a paper prescription [ ] No new medications given *Please follow up with your primary care provider in 2-3 days, call for an appointment. Let them know you were seen in the Emergency Department and that we ask that you be seen in follow up. We will electronically transmit a record of today's note if your PCP is in our system. You did sustain a sprain of your foot injury ankle today we placed you in a orthopedic boot and provided with crutches, there is no evidence of fracture, however if you have persistent pain within 5-7 days' time that is not improving at all with treatment with rest ice compression elevation staying off of it I recommend you see your primary care provider and consider having repeat imaging done. In the meantime please do your best not to walk on the affected extremity as it will heal faster and better if you are not putting weight on it, you can wear an Fletcher wrap at night and please wear the supportive boot during the day and use crutches to stay off of your leg. You can follow-up with your primary care provider for this, I encouraged her to take Tylenol and ibuprofen for pain, I did prescribe a small amount of tramadol as he seemed to be quite uncomfortable 2nd to pain but please only use this if Tylenol and ibuprofen are ineffective. *If you do not have a primary care provider please contact the [facility] Resource line at [phone]. They will ask some questions about your medical history and help get you set up with a doctor in the community. *Return to Emergency Department if you should have any new, worsening or concerning symptoms, such as [fever greater than 101 F, shaking chills, worsening pain, persistent vomiting or other bothersome symptoms] Prescriptions: New tramadol 50 mg tablet 50 mg PO Q8H PRN (Reason: pain) 3 Days Qty: 9 0RF No Action methocarbamol 500 mg tablet 500 mg PO TID PRN (Reason: muscle aches) Qty: 14 0RF hydrocodone-acetaminophen 5-325 mg tablet 1 tab PO Q6-8H PRN (Reason: pain) Qty: 10 0RF ibuprofen 800 mg tablet 800 mg PO TID PRN (Reason: pain) Qty: 20 0RF ibuprofen 400 mg tablet 400 mg PO Q6H PRN (Reason: fever or pain) Qty: 20 0RF benzonatate 200 mg capsule 200 mg PO BID-TID PRN (Reason: cough) Qty: 14 0RF benzonatate 200 mg capsule 200 mg PO BID-TID PRN (Reason: cough) Qty: 14 0RF ibuprofen [IBU] 600 mg tablet 600 mg PO QID PRN (Reason: fever) Qty: 20 0RF benzonatate 200 mg capsule 200 mg PO BID-TID PRN (Reason: cough) Qty: 14 0RF ibuprofen [IBU] 600 mg tablet 600 mg PO Q6H PRN (Reason: fever) Qty: 20 0RF Referrals: Fatmata Hills PA-C [Primary Care Provider] - Stand Alone Forms: Patient Portal/API <Bull Canas MD - Last Filed: 06/04/23 08:30> Cosign ED Attending Cosignature Attestation: I was immediately available in the department for consultation. ?This documentation has been reviewed and I agree with assessment and plan. Supervised by Bull Canas MD
[2023-06-03] MEDS: KETOROLAC 30 MG/ML VIAL IM (14:00)
== END 2023-06-03 15:44 | disposition home or self-care (01) ==
PROVIDERS: Emergency Provider Student in an Organized Health Care Education/Training Program; PCP Physician Assistant
DX: S93.401A Sprain of unspecified ligament of right ankle, initial encounter (principal); S93.601A Unspecified sprain of right foot, initial encounter; W10.9XXA Fall (on) (from) unspecified stairs and steps, initial encounter; B34.9 Viral infection, unspecified
CPT/HCPCS: 73610; 73630; 96372; 99283; 99284; J1885

== ENCOUNTER 2023-11-18 10:50 | Emergency (ER) | payer OTHER, SELFPAY ==
[2023-11-18 11:15] VITALS: BP 180/107; PULSE 93; RESP 18; TEMP 36.6; O2SAT 98; BMI 29.7
--- NOTE | 2023-11-18 11:55 | PC.NURSE ---
she states her anxiety level is high, causing her to vomit. emotional support.
--- NOTE | 2023-11-18 12:12 | ED.URI ---
HPI - URI/Sore Throat <Cassie Vega PA-C - Last Filed: 11/18/23 13:06> General Chief Complaint: Upper Respiratory Symptoms Stated Complaint: bad cough pain in chest cant move arm n/v Time Seen by Provider: 11/18/23 11:53 Source: patient Mode of arrival: Ambulatory History of Present Illness HPI Narrative: 38-year-old female with past medical history hypertension, mild asthma and anxiety presenting with several day history of fever, vomiting after cough with associated left chest/left arm pain with deep inhalation. Also reports fatigue, chills, headache, mild sore throat and temperature of 101.0 yesterday. Reports she recently moved and is extremely anxious. Usually takes lisinopril/losartan for hypertension but has not taken since Friday. Denies nasal congestion, head fullness, ear fullness, no visual changes, chest pressure, diaphoresis nor shortness of breath. Related Data Previous Rx's Medication Instructions Recorded hydrocodone 5 mg-acetaminophen 325 1 tab PO Q6-8H PRN pain #10 tabs 11/16/21 mg tablet methocarbamol 500 mg tablet 500 mg PO TID PRN muscle aches #14 11/16/21 tabs benzonatate 100 mg capsule 100 mg PO TID PRN cough #14 caps 11/18/23 Allergies Allergy/AdvReac Type Severity Reaction Status Date / Time codeine [CODEINE] Allergy Intermediate Hives Verified 11/18/23 11:34 Penicillins [PENICILLINS] Allergy Intermediate Hives Verified 11/18/23 11:34 Review of Systems <Cassie Vega PA-C - Last Filed: 11/18/23 13:06> Constitutional Constitutional: Reports body ache(s), Reports chills, Reports fatigue, Reports fever(s), Reports lethargy, Reports malaise and Denies night sweats Eyes Eyes: Denies change in vision, Denies eye discharge, Denies irritation and Denies loss of vision ENT Ears, Nose, Mouth, and Throat: Denies change in voice, Denies dizziness, Reports otalgia, Denies neck pain, Denies sore throat and Denies throat swelling Comments: Mild sore throat Cardiovascular Cardiovascular: Denies chest pain, Denies irregular heart rhythm, Denies lightheadedness, Denies palpitations, Denies dyspnea, Denies dyspnea on exertion and Denies orthopnea Comments: No shortness of breath, no diaphoresis, nor chest pressure Respiratory Respiratory: Reports as per HPI, Denies cough, Denies dyspnea, Denies dyspnea on exertion and Denies wheezing Gastrointestinal Gastrointestinal: Denies abdominal pain, Denies change in bowel habits, Reports diarrhea (One episode), Denies nausea and Denies vomiting Musculoskeletal Musculoskeletal: Denies neck pain and Denies numbness Integumentary/Breasts Skin/Breast: Denies pruritus, Denies erythema, Denies rash and Denies wounds Neurologic Neurologic: Denies behavioral changes, Denies confusion, Denies dizziness, Denies loss of vision and Denies numbness Psychiatric Psychiatric: Denies anxiety, Denies behavioral changes, Denies confusion, Denies depression, Denies homicidal ideation and Denies suicidal ideation Endocrine Endocrine: Reports fatigue, Denies flushing and Denies palpitations Hematologic/Lymphatic Hematologic/Lymphatic: Denies easy bruising Allergic/Immunologic Allergic/Immunologic: Denies urticaria, Denies throat swelling and Denies wheezing Patient History <Cassie Vega PA-C - Last Filed: 11/18/23 13:06> Medical History (Updated 11/18/23 @ 12:48 by Cassie Vega PA-C) Hypertension Social History Smoking Status: Current every day smoker Smoking Status: Current every day smoker tobacco type: cigarettes alcohol intake frequency: other Substance Use Type: marijuana Exam <Cassie Vega PA-C - Last Filed: 11/18/23 13:06> Initial Vital Signs Initial Vital Signs: Vital Signs Temperature 97.8 F 11/18/23 11:15 Pulse Rate 93 H 11/18/23 11:15 Respiratory Rate 18 11/18/23 11:15 Blood Pressure 180/107 H 11/18/23 11:15 Pulse Oximetry 98 11/18/23 11:15 Oxygen Delivery Method Room Air 11/18/23 11:15 PHYSICAL EXAM: GEN: Afebrile. Cooperative healthy appearing. Appears anxious, teary. HEENMT: Head: ?Normocephalic, atraumatic Ears: ?Hearing grossly normal bilaterally. Bilateral tympanic membrane pearly white. Eyes: ?Normal appearance. non-edematous, no icterus bilaterally. Nose: ?External nose normal. Face: ?Face symmetric. Mouth: ?Oral mucosae moist. Throat: ?Posterior oropharynx normal, nonerythematous. No exudate. NECK: Normal visual inspection. No nuchal rigidity. ABD: ?No tenderness to palpation all 4 quadrants, nondistended. LUNGS: ?Vesicular breath sounds bilateral. No rhonchi, crackles nor wheezes heard. CARD: RRR. No murmurs, rubs nor gallops. Extremities non-edematous. NEURO: Alert and oriented x 3. No focal deficits. Moving all extremities with appropriate strength. <Keke Li DO - Last Filed: 11/21/23 07:34> Initial Vital Signs Initial Vital Signs: Vital Signs Temperature 97.8 F 11/18/23 11:15 Pulse Rate 93 H 11/18/23 11:15 Respiratory Rate 18 11/18/23 11:15 Blood Pressure 180/107 H 11/18/23 11:15 Pulse Oximetry 98 11/18/23 11:15 Oxygen Delivery Method Room Air 11/18/23 11:15 Course <Cassie Vega PA-C - Last Filed: 11/18/23 13:06> Orders Ordered: ED Orders 11/18/23 11:25 Covid-19 + FLU A/B + RSV - PCR Stat Vital Signs Vital signs: Vital Signs - 8 hr 11/18/23 11:15 Temperature 97.8 F Pulse Rate 93 H Respiratory Rate 18 Blood Pressure 180/107 H Pulse Oximetry 98 Oxygen Delivery Method Room Air <Keke Li DO - Last Filed: 11/21/23 07:34> Orders Ordered: ED Orders 11/18/23 11:25 Covid-19 + FLU A/B + RSV - PCR Stat Vital Signs Vital signs: Vital Signs - 8 hr 11/18/23 11:15 Temperature 97.8 F Pulse Rate 93 H Respiratory Rate 18 Blood Pressure 180/107 H Pulse Oximetry 98 Oxygen Delivery Method Room Air MDM - URI/Sore Throat <Cassie Vega PA-C - Last Filed: 11/18/23 13:06> Lab Data Labs: Lab Results 11/18/23 Range/Units 11:25 SARS-CoV-2 (PCR) Negative (Negative) Influenza A (RT-PCR) Flu a negative (NEGATIVE) Influenza B (RT-PCR) Flu b negative (NEGATIVE) RSV (PCR) Negative (Negative) Point of Care Testing Test Results Negative Urine Dip Bedside Urine Glucose Negative Bedside Urine Bilirubin - Negative Bedside Urine Ketone - Negative Urine Specific [place] 1.015 Bedside Urine Occult Blood +/- Bedside Urine pH 6.0 Bedside Urine Protein - Negative Bedside Urine Urobilinogen - Negative Bedside Urine Nitrite - Negative Bedside Urine Leukocytes - Negative Esterase MDM Narrative Medical decision making narrative: 38-year-old female with past medical history hypertension, mild asthma and anxiety presenting with several day history of fever, vomiting after cough with associated left chest/left arm pain with deep inhalation. Concern for differential diagnosis of upper respiratory infection vs. pneumonia vs. COVID. Will obtain a 4 pack respiratory panel for further evaluation. Respiratory panel negative for COVID, RSV, flu a, flu B. Findings consistent with diagnosis of upper respiratory infection. ?Patient discharged home with benzonatate 200 mg t.i.d. as needed cough. She may take Mucinex for congestion and encouraged to stay hydrated. Instructed patient also to resume antihypertensive meds as she soon as she gets home. All results reviewed with patient, plan of care discussed and ER precautions given. ?Patient states understanding of this and is in agreement with plan. Medical records reviewed. <Keke Li, DO - Last Filed: 11/21/23 07:34> Lab Data Labs: Lab Results 11/18/23 Range/Units 11:25 SARS-CoV-2 (PCR) Negative (Negative) Influenza A (RT-PCR) Flu a negative (NEGATIVE) Influenza B (RT-PCR) Flu b negative (NEGATIVE) RSV (PCR) Negative (Negative) Point of Care Testing Test Results Negative Urine Dip Bedside Urine Glucose Negative Bedside Urine Bilirubin - Negative Bedside Urine Ketone - Negative Urine Specific [place] 1.015 Bedside Urine Occult Blood +/- Bedside Urine pH 6.0 Bedside Urine Protein - Negative Bedside Urine Urobilinogen - Negative Bedside Urine Nitrite - Negative Bedside Urine Leukocytes - Negative Esterase Discharge Plan Departure Patient Disposition: Home Clinical Impression: Upper respiratory infection Qualifiers: URI type: unspecified viral URI Qualified Code(s): J06.9 - Acute upper respiratory infection, unspecified Instructions: DI for Viral Upper Respiratory Infection -- Adult Activity Restrictions/Additional Instructions: DISCHARGE INSTRUCTIONS: You were evaluated today in the Emergency Department for cough with the finding of upper respiratory infection. ?Diagnostics completed include respiratory panel which was reassuring and negative for COVID, flu A/B and RSV. ?You were prescribed benzonatate for your cough which was sent to [facility]. ?Please follow-up with your PCP if symptoms linger. ?If any concerning signs or symptoms, such as, chest pain or shortness of breath, please return to the ED. Thank you for allowing us to be involved in your care. Feel better soon! Prescriptions: New benzonatate 100 mg capsule 100 mg PO TID PRN (Reason: cough) Qty: 14 0RF Discontinued ibuprofen 800 mg tablet 800 mg PO TID PRN (Reason: pain) Qty: 20 0RF ibuprofen 400 mg tablet 400 mg PO Q6H PRN (Reason: fever or pain) Qty: 20 0RF benzonatate 200 mg capsule 200 mg PO BID-TID PRN (Reason: cough) Qty: 14 0RF benzonatate 200 mg capsule 200 mg PO BID-TID PRN (Reason: cough) Qty: 14 0RF ibuprofen [IBU] 600 mg tablet 600 mg PO QID PRN (Reason: fever) Qty: 20 0RF benzonatate 200 mg capsule 200 mg PO BID-TID PRN (Reason: cough) Qty: 14 0RF ibuprofen [IBU] 600 mg tablet 600 mg PO Q6H PRN (Reason: fever) Qty: 20 0RF No Action methocarbamol 500 mg tablet 500 mg PO TID PRN (Reason: muscle aches) Qty: 14 0RF hydrocodone-acetaminophen 5-325 mg tablet 1 tab PO Q6-8H PRN (Reason: pain) Qty: 10 0RF Referrals: Fatmata [place] PA-C [Primary Care Provider] - Stand Alone Forms: Patient Portal/API, Work Release Note ED Sign-out <Keke Li DO - Last Filed: 11/21/23 07:34> Cosign ED Attending Tunde Attestation: I was immediately available in the department for consultation.
[2023-11-18 12:14] LABS: COVID-19 CEPHEID 4-PLEX PCR Negative (Negative); Influenza A - CEPHEID Flu A NEGATIVE (NEGATIVE); Influenza B - CEPHEID Flu B NEGATIVE (NEGATIVE); Respiratory Syncytial Virus Negative (Negative)
[2023-11-18 12:54] VITALS: BP 161/94; PULSE 86; RESP 16; O2SAT 99
== END 2023-11-18 12:55 | disposition home or self-care (01) ==
PROVIDERS: Physician Assistant; Emergency Provider Physician Assistant Surgical; PCP Physician Assistant
DX: J06.9 Acute upper respiratory infection, unspecified (principal); Z20.822 Contact with and (suspected) exposure to COVID-19
CPT/HCPCS: 0241U; 81003; 81025; 99282

== ENCOUNTER 2024-01-19 16:32 | Emergency (ER) | payer OTHER, SELFPAY ==
[2024-01-19 17:12] VITALS: BP 195/100; PULSE 71; RESP 18; TEMP 36.8; O2SAT 100; BMI 35.5
--- NOTE | 2024-01-19 17:17 | DI.RAD.S_ITS ---
PROCEDURE: XR HIP W PEL IF DONE LT 2V INDICATIONS: old fracture; new pain TECHNIQUE: AP pelvis with lateral view of the left hip. COMPARISON: [facility], , HIP 2V RIGHT, 07/16/2007, 16:34. FINDINGS: Bones: No acute fractures or dislocations. Pelvic ring appears intact. No suspicious bony lesions. Mild degenerative changes are seen in the hips bilaterally. Soft tissues: The visualized bowel gas pattern is normal. No suspicious soft tissue calcifications. IMPRESSION: No acute osseous abnormality. If symptoms persist or if there is continued clinical concern, cross-sectional imaging such as MRI or CT may be helpful for further evaluation. Approved by: Jitendra Gaines M.D. on 01/19/2024 at 18:27
[2024-01-19 19:49] VITALS: PULSE 75; O2SAT 99
[2024-01-19 20:00] VITALS: PULSE 79; O2SAT 99
--- NOTE | 2024-01-19 20:12 | ED_ITS ---
HPI - Extremity Injury (Lower) General Chief Complaint: Extremity Injury, Lower Stated Complaint: lt hip pain Time Seen by Provider: 01/19/24 19:57 Source: patient Mode of arrival: Wheelchair History of Present Illness HPI Narrative: 38-year-old female who is here for evaluation of left hip pain. She states that a couple days ago she hurt her left hip when she tried to suddenly stop herself from falling down a couple stairs. Since that time she has had pain in her left hip but symptoms have been improving until today when she bent over and when she stood up she had an increase in pain in the left hip no knee pain. No other injuries from the event. Has taken Tylenol and ibuprofen. Related Data Previous Rx's Medication Instructions Recorded hydrocodone 5 mg-acetaminophen 325 1 tab PO Q6-8H PRN pain #10 tabs 11/16/21 mg tablet methocarbamol 500 mg tablet 500 mg PO TID PRN muscle aches #14 11/16/21 tabs benzonatate 100 mg capsule 100 mg PO TID PRN cough #14 caps 11/18/23 Allergies Allergy/AdvReac Type Severity Reaction Status Date / Time codeine [CODEINE] Allergy Intermediate Hives Verified 11/18/23 11:34 Penicillins [PENICILLINS] Allergy Intermediate Hives Verified 11/18/23 11:34 Review of Systems Constitutional Constitutional: Reports system reviewed and no additional complaints, except as documented Musculoskeletal Musculoskeletal: Reports system reviewed and no additional complaints, except as documented Integumentary/Breasts Skin/Breast: Reports system reviewed and no additional complaints, except as documented Neurologic Neurologic: Reports system reviewed and no additional complaints, except as documented Patient History Medical History Hypertension Social History Smoking Status: Current every day smoker Smoking Status: Current every day smoker tobacco type: cigarettes alcohol intake frequency: other Substance Use Type: marijuana Exam Initial Vital Signs Initial Vital Signs: Vital Signs Temperature 98.3 F 01/19/24 17:12 Pulse Rate 71 01/19/24 17:12 Respiratory Rate 18 01/19/24 17:12 Blood Pressure 195/100 H 01/19/24 17:12 Pulse Oximetry 100 01/19/24 17:12 Oxygen Delivery Method Room Air 01/19/24 17:[address] [facility] Head: normal to inspection and normocephalic GI Inspection: normal to inspection Extrem Other: No gross deformities. She does have some tenderness to palpation over the greater trochanter of the left hip. Her left knee is unremarkable. Reports no groin tenderness. Course Orders Ordered: Discontinued Medications Hydrocodone Bitart/Acetaminophen (Hydrocodone/Acet 5/325 Tablet) 1 tab PO NOW ONE Stop: 01/19/24 20:14 Last Admin: 01/19/24 20:23 Dose: 1 tab Documented By: RADHA Vital Signs Vital signs: Vital Signs - 8 hr 01/19/24 19:49 01/19/24 20:00 01/19/24 20:15 Pulse Rate 75 79 86 Respiratory Rate 18 Blood Pressure Pulse Oximetry 99 99 99 Oxygen Delivery Method Room Air 01/19/24 20:22 01/19/24 20:30 Pulse Rate Respiratory Rate Blood Pressure 192/105 H 178/96 H Pulse Oximetry Oxygen Delivery Method [facility] - Extremity Injury (Lower) Imaging Data Extremity x-ray #1: Radiologist's Impression: PROCEDURE: XR HIP W PEL IF DONE LT 2V INDICATIONS: old fracture; new pain TECHNIQUE: AP pelvis with lateral view of the left hip. COMPARISON: [facility], , HIP 2V RIGHT, 07/16/2007, 16:34. FINDINGS: Bones: No acute fractures or dislocations. Pelvic ring appears intact. No suspicious bony lesions. Mild degenerative changes are seen in the hips bilaterally. Soft tissues: The visualized bowel gas pattern is normal. No suspicious soft tissue calcifications. IMPRESSION: No acute osseous abnormality. If symptoms persist or if there is continued clinical concern, cross-sectional imaging such as MRI or CT may be helpful for further evaluation. [facility] Narrative Medical decision making narrative: Patient is neurovascularly intact without fractures or dislocations noted on the x-rays. Patient states she was told by her primary doctor that she may have an infection in her hip because she had a hairline fracture in the past. I have low suspicion that this is a septic joint. Feel that labs are not warranted. I did discuss this with her. We did discuss the possibility of a soft tissue injury such as a labral tear and advised that she contact her primary doctor for further evaluation if her symptoms do not improve with conservative measures over the next several days. She was given return precautions. She expressed understanding and agreement. Discharge Plan Departure Patient Disposition: Home Clinical Impression: Hip pain Instructions: DI for Hip Pain Activity Restrictions/Additional Instructions: Continue to take the anti-inflammatories as directed. Contact your primary care doctor for a follow-up as you may need a referral to see Orthopedic surgery or physical therapy. Return to the emergency department for new symptoms. Prescriptions: No Action methocarbamol 500 mg tablet 500 mg PO TID PRN (Reason: muscle aches) Qty: 14 0RF hydrocodone-acetaminophen 5-325 mg tablet 1 tab PO Q6-8H PRN (Reason: pain) Qty: 10 0RF benzonatate 100 mg capsule 100 mg PO TID PRN (Reason: cough) Qty: 14 0RF Referrals: Fat[place] PA-C [Primary Care Provider] - Stand Alone Forms: Patient Portal/API
[2024-01-19 20:15] VITALS: PULSE 86; RESP 18; O2SAT 99
[2024-01-19 20:22] VITALS: BP 192/105
[2024-01-19] MEDS: HYDROCODONE/ACET 5/325 TABLET 1 TAB PO (20:23)
[2024-01-19 20:30] VITALS: BP 178/96
== END 2024-01-19 20:40 | disposition home or self-care (01) ==
PROVIDERS: Emergency Provider Emergency Medicine; PCP Physician Assistant
DX: M25.552 Pain in left hip (principal)
CPT/HCPCS: 73502; 99283

== ENCOUNTER 2024-11-08 17:59 | Emergency (ER) | payer OTHER, SELFPAY ==
[2024-11-08] VITALS (12 sets, daily range): BP systolic 149–256; BP diastolic 91–154; PULSE 83–119; RESP 12–23; TEMP 36.8; O2SAT 97–99; BMI 36.8
--- NOTE | 2024-11-08 20:15 | DI.RAD.S_ITS ---
PROCEDURE: XR CHEST 1V INDICATIONS: chest pain TECHNIQUE: One view of the chest was acquired. COMPARISON: [facility], CR, XR CHEST 1V, 05/30/2020, 2:46. FINDINGS: Surgical changes and devices: None. Lungs and pleura: Lungs are clear. No pleural effusions or pneumothorax. Mediastinum: Mediastinal contours appear normal. Heart size is normal. Bones and chest wall: No suspicious bony lesions. Overlying soft tissues appear unremarkable. IMPRESSION: No acute cardiopulmonary pathology. Dictated by: Zeeshan Dorado M.D. on 11/08/2024 at 20:59 Approved by: Zeeshan Dorado M.D. on 11/08/2024 at 21:01
--- NOTE | 2024-11-08 20:21 | EKG_ITS ---
[address] [address] [place] [address] Test Date: 2024-11-08 Pat Name: Elizabeth Kimbrough Department: [facility] Room: Gender: Female Curriculum And Assessment Director: BLADIMIR FLOR : 1985 Requested By: Order Number: [id number] Reading MD: Ameya Crenshaw MD Measurements Intervals [place] Rate: 98 P: 11 RI: 156 QRS: -6 QRSD: 62 T: 8 QT: 404 QTc: 515 Interpretive Statements Normal sinus rhythm Left ventricular hypertrophy with repolarization abnormality ( R in aVL , [place] ) Inferior infarct , age undetermined Prolonged QT NO SIGNIFICANT CHANGE FROM PRIOR TRACING Electronically Signed On 11-09-2024 7:48:18 PST by Ameya Crenshaw MD
--- NOTE | 2024-11-08 20:22 | EKG_ITS ---
[facility] [address] [place] [address] Test Date: 2024-11-08 Pat Name: Elizabeth Kimbrough Department: [facility] Room: Gender: Female Manager Transfusion: BLADIMIR FLOR : 1985 Requested By: Order Number: [id number] Reading MD: Ameya Crenshaw MD Measurements Intervals [place] Rate: 103 P: 15 OK: 146 QRS: -5 QRSD: 72 T: 49 QT: 390 QTc: 510 Interpretive Statements Sinus tachycardia Minimal voltage criteria for LVH, may be normal variant ( R in aVL ) Inferior infarct , age undetermined NO SIGNIFICANT CHANGE FROM PRIOR TRACING Electronically Signed On 11-09-2024 7:48:25 PST by Ameya Crenshaw MD
[2024-11-08 20:47] LABS: Add Manual Diff / Slide Review NO; Basophils Absolute Auto 100 /uL (0-100); Basophils Percent Auto 0.7 % (0-2); Eosinophils Absolute Auto 100 /uL (0-450); Eosinophils Percent Auto 0.8 % (2-4); Hematocrit 42.7 % (36-46); Lymphocytes Absolute Auto 3400 /uL (1100-4500); Lymphocytes Percent Auto 21.5 % (25-40); Mean Corpuscular HGB Conc 32.7 % (30-36); Mean Corpuscular Hemoglobin 26.9 PG (26-34); Mean Corpuscular Volume 82.2 fL (80-100); Monocytes Absolute Auto 900 /uL (0-900); Monocytes Percent Auto 5.8 % (3-14); Neutrophils Absolute Auto 11400 /uL (1500-7000); Neutrophils Percent Auto 71.2 % (50-75); Platelet Count 401 X10^3/uL (150-400); Red Cell Distribution Width 15.3 % (11.6-14.8)
[2024-11-08] MEDS: ASPIRIN 81 MG CHEW TAB 324 MG PO (20:47)
[2024-11-08 20:54] LABS: INR 1.1 (0.9-1.3); Prothrombin Time 12.1 SECONDS (9.4-12.5)
[2024-11-08 20:57] LABS: PTT Partial Thromboplastin Tim 34 SECONDS (25.1-36.5)
[2024-11-08 20:59] LABS: Alanine Aminotransferase 35 IU/L (<35); Albumin 4.1 g/dL (3.5-5.0); Albumin Globulin Ratio 1.1 (1.0-2.8); Alkaline Phosphatase 96 U/L (38-126); Aspartate Aminotransferase 34 IU/L (14-36); BUN Creatinine Ratio 10.5 (6-22); Bilirubin Total 0.6 mg/dL (0.2-1.3); Blood Urea Nitrogen 11 mg/dL (7-17); Carbon Dioxide 20 mmol/L (22-32); Chloride 110 mmol/L (98-107); Creatine Kinase 180 U/L (30-135); Estimated Glomerular Filt Rate > 60 mL/min (>60); Globulin 3.6 g/dL (1.7-4.1); Glucose 125 mg/dL (70-100); HEMOLYSIS < 15 (0-50); Lipase 74 U/L (23-300); Potassium 3.3 mmol/L (3.4-5.1); Sodium 138 mmol/L (137-145); Total Protein 7.7 g/dL (6.3-8.2)
[2024-11-08 21:10] LABS: NT-proBNP (BNP-Adult 18+) 360 pg/mL (<125); Troponin I 0.042 ng/mL (0.01-0.034)
[2024-11-08] MEDS: POTASSIUM CHLORIDE 20 MEQ/15 ML UDC 40 MEQ PO (22:33)
[2024-11-08] MEDS: MAG HYDROX/ALUM/SIMETH 30 ML UDC PO (22:33)
[2024-11-08] MEDS: MORPHINE 4 MG/ML INJ IV (22:34)
--- NOTE | 2024-11-08 23:05 | ED.GENADULT ---
HPI - General Adult General Chief complaint: Hypertension Stated complaint: Elevated BP 221/120, BANKS Time Seen by Provider: 11/08/24 20:35 Source: patient Mode of arrival: Ambulatory History of Present Illness HPI narrative: 39-year-old female with elevated blood pressure reading in clinic, was started on new dose losartan 25 mg 2 tablets daily, amlodipine 2.5 mg once daily, with planned for her to see her provider tomorrow in clinic. She has had recent global headache symptoms. No photophobia, neck discomfort. No nausea or vomiting. No weakness to face arm or leg. No numbness to face arm or leg. She denies chest pain. She denies fevers or chills. She has not taking blood thinner medications recently, this is a new regimen restart yesterday. Related Data Previous Rx's Medication Instructions Recorded hydrocodone 5 mg-acetaminophen 325 1 tab PO Q6-8H PRN pain #10 tabs 11/16/21 mg tablet methocarbamol 500 mg tablet 500 mg PO TID PRN muscle aches #14 11/16/21 tabs benzonatate 100 mg capsule 100 mg PO TID PRN cough #14 caps 11/18/23 Allergies Allergy/AdvReac Type Severity Reaction Status Date / Time codeine [CODEINE] Allergy Intermediate Hives Verified 11/08/24 18:32 Penicillins [PENICILLINS] Allergy Intermediate Hives Verified 11/08/24 18:32 Review of Systems Review of Systems Narrative: GENERAL: Well-developed patient, in mild distress. HEAD: Atraumatic. Normocephalic. EYES: Pupils equal round and reactive. Extraocular motions intact. No scleral icterus. No injection or drainage. ENT: Nose without bleeding, purulent drainage. Throat without erythema, tonsillar hypertrophy or exudate. Airway patent. NECK: Trachea midline. Non tender CARDIOVASCULAR: Regular rate and rhythm without murmurs, gallops, or rubs. RESPIRATORY: Clear to auscultation. Breath sounds equal bilaterally. No wheezes, rales, or rhonchi. GASTROINTESTINAL: Abdomen soft, non-tender, nondistended. EXTREMITIES: No edema or joint tenderness. BACK: Nontender without deformity or crepitance. No flank tenderness. NEURO: AOx3. Motor functions grossly nonfocal SKIN: No rash or erythema of visible areas Patient History Medical History (Updated 01/07/25 @ 01:12 by Elijah Fragoso MD) Hypertension Social History Smoking Status: Current every day smoker Smoking Status: Current every day smoker tobacco type: cigarettes alcohol intake frequency: other Exam Narrative Exam Narrative: GENERAL: Well-developed patient, in mild distress. HEAD: Atraumatic. Normocephalic. EYES: Pupils equal round and reactive. Extraocular motions intact. No scleral icterus. No injection or drainage. ENT: Nose without bleeding, purulent drainage. Throat without erythema, tonsillar hypertrophy or exudate. Airway patent. NECK: Trachea midline. Non tender CARDIOVASCULAR: Regular rate and rhythm without murmurs, gallops, or rubs. RESPIRATORY: Clear to auscultation. Breath sounds equal bilaterally. No wheezes, rales, or rhonchi. GASTROINTESTINAL: Abdomen soft, non-tender, nondistended. EXTREMITIES: No edema or joint tenderness. BACK: Nontender without deformity or crepitance. No flank tenderness. NEURO: AOx3. Motor functions grossly nonfocal SKIN: No rash or erythema of visible areas Initial Vital Signs Initial Vital Signs: Vital Signs Temperature 98.2 F 11/08/24 18:27 Pulse Rate 99 H 11/08/24 18:27 Respiratory Rate 12 11/08/24 18:27 Blood Pressure 203/128 H 11/08/24 18:27 Pulse Oximetry 99 11/08/24 18:27 Oxygen Delivery Method Room Air 11/08/24 18:27 Course Orders Ordered: ED Orders 11/08/24 20:15 XR chest 1V Stat EKG-12 Lead Stat 11/08/24 20:22 EKG-12 Lead Routine 11/08/24 20:40 Complete Blood Count AUTO DIFF Stat Comprehensive Metabolic Panel Stat Lipase Stat Magnesium Stat NT-proBNP (BNP-Adult 18+) Stat PTT Partial Thromboplastin Aldo Stat Prothrombin Time INR Stat Troponin & CK Cardiac Panel Stat 11/08/24 23:59 Troponin I Stat Discontinued Medications Al Hydrox/Mg Hydrox/Simethicone (Mag Hydrox/Alum/Simeth 30 Ml Udc) 30 ml PO NOW ONE Stop: 11/08/24 21:53 Last Admin: 11/08/24 22:33 Dose: 30 ml Documented By: RADHA Amlodipine Besylate (Amlodipine 5 Mg Tablet) 2.5 mg PO NOW ONE Stop: 11/08/24 23:20 Last Admin: 11/08/24 23:59 Dose: 2.5 mg Documented By: RADHA Aspirin (Aspirin 81 Mg Chew Tab) 324 mg PO NOW ONE Stop: 11/08/24 20:16 Last Admin: 11/08/24 20:47 Dose: 324 mg Documented By: RADHA Hydralazine HCl (Hydralazine 20 Mg/Ml Vial) 10 mg IV Q6HR PRN PRN Reason: Hypertension Morphine Sulfate (Morphine 4 Mg/Ml Inj) 4 mg IV NOW ONE Stop: 11/08/24 21:53 Last Admin: 11/08/24 22:34 Dose: 4 mg Documented By: RADHA Morphine Sulfate (Morphine 4 Mg/Ml Inj) 4 mg IV NOW ONE Stop: 11/09/24 01:09 Last Admin: 11/09/24 01:29 Dose: 4 mg Documented By: RAQUEL Ondansetron HCl (Ondansetron 4 Mg/2 Ml Inj) 4 mg IV NOW ONE Stop: 11/09/24 01:09 Last Admin: 11/09/24 01:29 Dose: 4 mg Documented By: RAQUEL Potassium Chloride (Potassium Chloride 20 Meq/15 Ml Udc) 40 meq PO NOW ONE Stop: 11/08/24 21:52 Last Admin: 11/08/24 22:33 Dose: 40 meq Documented By: RADHA Vital Signs Vital signs: Vital Signs - 8 hr 11/08/24 20:30 11/08/24 20:30 11/08/24 20:45 Pulse Rate 98 H Respiratory Rate Blood Pressure 165/110 H 151/98 H Pulse Oximetry 99 Oxygen Delivery Method 11/08/24 20:45 11/08/24 21:00 11/08/24 21:00 Pulse Rate 97 H 96 H Respiratory Rate 22 Blood Pressure 149/100 H Pulse Oximetry 98 98 Oxygen Delivery Method Room Air 11/08/24 21:30 11/08/24 21:30 11/08/24 22:00 Pulse Rate 93 H Respiratory Rate Blood Pressure 160/91 H 167/114 H Pulse Oximetry 98 Oxygen Delivery Method 11/08/24 22:00 11/08/24 22:07 11/08/24 22:07 Pulse Rate 100 H 90 Respiratory Rate 21 22 Blood Pressure 159/100 H Pulse Oximetry 98 98 Oxygen Delivery Method 11/08/24 22:30 11/08/24 22:30 11/08/24 23:00 Pulse Rate 91 H 91 H Respiratory Rate 23 21 Blood Pressure 154/97 H Pulse Oximetry 99 98 Oxygen Delivery Method Room Air 11/08/24 23:00 11/08/24 23:30 11/08/24 23:30 Pulse Rate 83 Respiratory Rate 21 Blood Pressure 157/92 H 151/96 H Pulse Oximetry 97 Oxygen Delivery Method Room Air 11/09/24 00:00 11/09/24 00:00 11/09/24 00:32 Pulse Rate 88 92 H Respiratory Rate 22 Blood Pressure 160/92 H Pulse Oximetry 98 Oxygen Delivery Method 11/09/24 00:33 11/09/24 00:33 11/09/24 01:00 Pulse Rate 87 Respiratory Rate 23 Blood Pressure 139/96 H 157/101 H Pulse Oximetry 98 Oxygen Delivery Method Room Air 11/09/24 01:00 11/09/24 01:30 11/09/24 01:30 Pulse Rate 83 91 H Respiratory Rate 19 19 Blood Pressure 167/115 H Pulse Oximetry 99 98 Oxygen Delivery Method Room Air Room Air 11/09/24 01:31 11/09/24 01:31 11/09/24 02:00 Pulse Rate 89 Respiratory Rate 18 Blood Pressure 179/108 H 134/81 Pulse Oximetry 98 Oxygen Delivery Method Room Air 11/09/24 02:00 11/09/24 02:30 11/09/24 02:30 Pulse Rate 80 80 Respiratory Rate 16 16 Blood Pressure 135/75 Pulse Oximetry 98 97 Oxygen Delivery Method Room Air Room Air 11/09/24 02:47 11/09/24 02:47 Pulse Rate 90 Respiratory Rate 23 Blood Pressure 154/97 H Pulse Oximetry 98 Oxygen Delivery Method Room Air Medical Decision Making Lab Data Lab results reviewed: Yes I reviewed the patient's lab results. Lab results narrative: White blood cell count 35113, hemoglobin 14, platelets adequate. Sodium 134, serum potassium 3.3 low, BUN 11 and creatinine 1.05 normal. Glucose 125. 11/08/24 20:40 11/08/24 20:40 Labs: Lab Results 11/08/24 11/08/24 Range/Units 20:40 23:59 WBC 16.0 H (4.5-11.0) X10^3/uL RBC 5.20 (4.0-5.2) X10^6/uL Hgb 14.0 (12.0-16.0) g/dL Hct 42.7 (36-46) % MCV 82.2 (80-100) fL MCH 26.9 (26-34) PG MCHC 32.7 (30-36) % RDW 15.3 H (11.6-14.8) % Plt Count 401 H (150-400) X10^3/uL Neut % (Auto) 71.2 (50-75) % Lymph % (Auto) 21.5 L (25-40) % [place] % (Auto) 5.8 (3-14) % Eos % (Auto) 0.8 L (2-4) % Baso % (Auto) 0.7 (0-2) % Neut # (Auto) 59759 H (1465-0219) /uL Lymph # (Auto) 3400 (5665-5799) /uL [place] # (Auto) 900 (0-900) /uL Eos # (Auto) 100 (0-450) /uL Baso # (Auto) 100 (0-100) /uL PT 12.1 (9.4-12.5) SECONDS INR 1.1 (0.9-1.3) APTT 34 (25.1-36.5) SECONDS Sodium 138 (137-145) mmol/L Potassium 3.3 L (3.4-5.1) mmol/L Chloride 110 H (98-107) mmol/L Carbon Dioxide 20 L (22-32) mmol/L BUN 11 (7-17) mg/dL Creatinine 1.05 H (0.52-1.04) mg/dL Estimated GFR > 60 (>60) mL/min BUN/Creatinine Ratio 10.5 (6-22) Glucose 125 H (70-100) mg/dL Calcium 9.0 (8.4-10.2) mg/dL Magnesium 2.0 (1.6-2.3) mg/dL Total Bilirubin 0.6 (0.2-1.3) mg/dL AST 34 (14-36) IU/L ALT 35 H (<35) IU/L Alkaline Phosphatase 96 (38-126) U/L Total Creatine Kinase 180 H (30-135) U/L Troponin I 0.042 H 0.032 (0.01-0.034) ng/mL NT-Pro-B Natriuret Pep 360 H (<125) pg/mL Total Protein 7.7 (6.3-8.2) g/dL Albumin 4.1 (3.5-5.0) g/dL Globulin 3.6 (1.7-4.1) g/dL Albumin/Globulin Ratio 1.1 (1.0-2.8) Lipase 74 (23-300) U/L Imaging Data Chest x-ray: Radiologist's Impression: Close Chest X-Ray (Signed) Zeeshan Dorado - 11/08/24 Launch?Image [address] [address] XRay Report Signed Patient: Elizabeth Real MR#: [id number] : 1985 Acct:[id number] Age/Sex: 39 / F Date of Service: 11/08/24 Loc: ED Accession Number: [id number] Procedure: XR chest 1V Ordering Provider: Elijah Fragoso MD PROCEDURE: XR CHEST 1V INDICATIONS: chest pain TECHNIQUE: One view of the chest was acquired. COMPARISON: [facility], , XR CHEST 1V, 05/30/2020, 2:46. FINDINGS: Surgical changes and devices: None. Lungs and pleura: Lungs are clear. No pleural effusions or pneumothorax. Mediastinum: Mediastinal contours appear normal. Heart size is normal. Bones and chest wall: No suspicious bony lesions. Overlying soft tissues appear unremarkable. IMPRESSION: No acute cardiopulmonary pathology. Dictated by: Zeeshan Dorado M.D. on 11/08/2024 at 20:59 Approved by: Zeeshan Dorado M.D. on 11/08/2024 at 21:01 ECG Data Attestation: I personally reviewed and interpreted this ECG as follows: Interpretation: Sinus tachycardia with a rate of 103, no obvious ST segment elevation or depression changes. CT 146. QRS 72. QTC 510. MDM Narrative Medical decision making narrative: 39-year-old female with elevated blood pressure diagnosed earlier today, started on new prescriptions for amlodipine and losartan, continues to have elevated blood pressures, also some global headache, no fevers or chills. No focal neuro findings. Given extra dose of her new amlodipine 2.5 mg oral dose. Persisting blood pressure elevation, still has headache. IV morphine/Zofran. Blood pressure improved, possibly some component blood pressure elevation secondary to headache. No indications for advanced brain imaging at this time. Advised patient continue losartan 50 mg daily, increase amlodipine to 5 mg daily. Take Tylenol and or Motrin as needed for pain control. Follow up with PCP tomorrow as planned for further blood pressure evaluation. Patient discharged home, has supply of losartan and amlodipine. Return precautions discussed Discharge Plan Departure Patient Disposition: Home Clinical Impression: Hypertension, Headache Activity Restrictions/Additional Instructions: Recent diagnosis hypertension having started losartan 50 mg daily and amlodipine 2.5 mg yesterday, medications were filled at pharmacy, 1st doses taken. You have ongoing global headache problems. No injury or trauma. No nausea or vomiting. Normal reassuring examination including neurological examination. Elevated blood pressures noted in clinic, given an additional dose of amlodipine. Given pain medications for your headache. Blood pressure seemed to be improved. For now you could consider taking losartan 50 mg daily and amlodipine 5 mg daily, and follow up with your regular doctor tomorrow for repeat blood pressure assessment. EKG and serial blood tests not suggestive of heart attack at this time. Renal function unremarkable, electrolyte screening unremarkable. Take Tylenol as needed for headache discomfort. Follow up tomorrow for your repeat blood pressure assessment. Return earlier to this/nearest emergency department for any change worsening symptoms or any concerns prior Prescriptions: No Action methocarbamol 500 mg tablet 500 mg PO TID PRN (Reason: muscle aches) Qty: 14 0RF hydrocodone-acetaminophen 5-325 mg tablet 1 tab PO Q6-8H PRN (Reason: pain) Qty: 10 0RF benzonatate 100 mg capsule 100 mg PO TID PRN (Reason: cough) Qty: 14 0RF Referrals: [place] PA-C [Primary Care Provider] - Stand Alone Forms: Patient Portal/API/Survey
[2024-11-08] MEDS: AMLODIPINE 5 MG TABLET 2.5 MG PO (23:59)
[2024-11-09] VITALS (9 sets, daily range): BP systolic 134–179; BP diastolic 75–115; PULSE 80–92; RESP 16–23; O2SAT 97–99
[2024-11-09 00:59] LABS: Troponin I 0.032 ng/mL (0.01-0.034)
[2024-11-09] MEDS: ONDANSETRON 4 MG/2 ML INJ IV (01:29)
[2024-11-09] MEDS: MORPHINE 4 MG/ML INJ IV (01:29)
== END 2024-11-09 03:08 | disposition home or self-care (01) ==
PROVIDERS: Emergency Provider Emergency Medicine; PCP Physician Assistant
DX: I10 Essential (primary) hypertension (principal); R51.9 Headache, unspecified; F17.200 Nicotine dependence, unspecified, uncomplicated
CPT/HCPCS: 36415; 71045; 80053; 82550; 83690; 83735; 83880; 84484; 85025; 85610; 85730; 93005; 93010; 96374; 96375; 96376; 99284; J2270; J2405

== ENCOUNTER → 2024-11-28 11:47 | Outpatient (CLI) | payer OTHER, SELFPAY ==
--- NOTE | 2024-11-28 | DI.RAD.S_ITS ---
PROCEDURE: XR HIP W PEL IF DONE RT 2V INDICATIONS: RIGHT HIP PAIN TECHNIQUE: AP pelvis with lateral view(s) of the right hip(s). COMPARISON: [facility], , XR HIP W PEL IF DONE LT 2V, 01/19/2024, 17:18. FINDINGS: Bones: No fractures or dislocations. Mild bilateral hip joint degeneration with joint space narrowing and marginal spurring. Pelvic ring appears intact. No suspicious bony lesions. Soft tissues: The visualized bowel gas pattern is normal. No suspicious soft tissue calcifications. IMPRESSION: No acute osseous abnormalities. Mild bilateral hip joint degeneration. Dictated by: Aiden Pretty M.D. on 11/28/2024 at 16:47 Approved by: Aiden Pretty M.D. on 11/28/2024 at 16:47
== END ==
PROVIDERS: PCP Physician Assistant; Referring Provider Nurse Practitioner Family; Visit Provider Nurse Practitioner Family
DX: M25.551 Pain in right hip (principal); M16.0 Bilateral primary osteoarthritis of hip
CPT/HCPCS: 73502

== ENCOUNTER → 2024-12-16 08:27 | Outpatient (CLI) | payer OTHER, SELFPAY ==
--- NOTE | 2024-12-16 08:28 | DI.ECHO.S_ITS ---
[facility] : : [address] : : [place] : : [address] : : Phone: [phone] Echocardiogram Report + + :Name: ZOLTAN ALMANZAR Study Date: 12/16/2024 Height: 61 in : :Hospital ReadingLocation: Weight: 190 lb : : Gender: Female BSA: 1.8 m2 : :: 1985 Age: 39 yrs BP: 143/95 mmHg: :Reason For Study: HYPERTENSION, ELEVATED BNP : :Ordering Physician: MARCIANO : :RAMONA Performed By: Ramila Ackerman : :Referring: RAMONA TARIQ : + + Interpretation Summary 1) Normal left ventricular thickness and size with low normal systolic function (EF 50-55%). 2) Mildly enlarged right ventricle with normal function. 3) No significant valvular abnormalities. 4) No prior Echo available for comparison. Procedure: A two-dimensional transthoracic echocardiogram with color flow and Doppler was performed. The study quality was technically adequate. There is no prior echocardiogram noted for this patient. The patient was in sinus rhythm with heart rates between 75-99 bpm during the exam. Left Ventricle: The left ventricle is normal in size and wall thickness. The ejection fraction is estimated to be 50-55%. There are no focal wall motion abnormalities. Right Ventricle: The right ventricle is mildly dilated. The right ventricular systolic function is normal. Atria: The left atrial size is normal. Right atrial size is normal. There is no Doppler evidence for an interatrial shunt. The atrial septum is aneurysmal. Mitral Valve: The mitral valve leaflets appear to open well. There is no mitral annular calcification. There is trace mitral regurgitation. Aortic Valve: The aortic valve opens well. The aortic valve is grossly normal. There is no aortic valve stenosis. No aortic regurgitation is present. Tricuspid Valve: The tricuspid valve leaflets are thin and pliable. There is mild tricuspid regurgitation. The right ventricular systolic pressure is estimated to be at least 29 mmHg based on an estimated right atrial pressure of 3 mm Hg. Pulmonic Valve: The pulmonic valve leaflets are thin and pliable; valve motion is normal. There is no pulmonic valvular regurgitation. Great Vessels: The aortic root is normal size. The dimensions of the ascending aorta are normal. The IVC is of normal diameter and collapses greater than 50% with a sniff. This suggests a low right atrial pressure of 3 mm Hg. Pericardium/ Pleura There is no pericardial effusion. There is no pleural effusion. MMode/2D Measurements & Calculations LVIDd: 5.0 cm LVOT diam: 2.1 cm LVIDs: 3.6 cm Ao root diam: 2.8 cm FS: 27.3 % asc Aorta Diam: 3.4 cm EPSS: 0.79 cm Ao Arch Diam (Prox Trans): 3.1 cm IVSd: 0.94 cm LVPWd: 0.84 cm LV borja. diameter/BSA (cm/m^2): 2.7 LV sys. diameter/BSA (cm/m^2): 2.0 LA A2 area: 18.5 cm2 RA long axis: 4.7 cm LA A4 area: 14.4 cm2 RA area: 14.7 cm2 LA length (vol): 4.7 cm RA vol: 38.9 ml LA vol: 47.7 ml RA : 21.0 ml/m2 LA vol index: 25.8 ml/m2 IVC diam: 1.6 cm RVD1 (basal): 4.2 cm RVD2 (mid): 3.7 cm TAPSE: 2.2 cm Doppler Measurements & Calculations Ao V2 max: 173.2 cm/sec LVOT Max Arsh: 120.6 cm/sec Ao V2 mean: 126.8 cm/sec LV V1 max P.8 mmHg Ao max P.0 mmHg LV V1 VTI: 22.4 cm Ao mean P.0 mmHg KEREN(I,D): 2.4 cm2 Ao V2 VTI: 33.7 cm KEREN(V,D): 2.5 cm2 sev ratio: 0.66 KEREN indexed to BSA (cm^2/m^2): 1.3 MV E max arsh: 79.6 cm/sec TR max arsh: 253.3 cm/sec MV A max arsh: 98.5 cm/sec TR max P.7 mmHg MV E/A: 0.81 PA V2 max: 126.2 cm/sec Med Peak E' Arsh: 8.0 cm/sec PA V2 mean: 90.6 cm/sec E/E' med: 10.0 PA mean P.6 mmHg Lat Peak E' Arsh: 11.0 cm/sec PA pr(Accel): 36.2 mmHg E/E' lat: 7.2 E/e' average: 8.6 MV dec time: 0.20 sec SV(LVOT): 80.7 ml Reading Physician:12:42 PM
== END ==
PROVIDERS: PCP Nurse Practitioner Family; Referring Provider Nurse Practitioner Family; Visit Provider Nurse Practitioner Family
DX: I10 Essential (primary) hypertension (principal); R06.09 Other forms of dyspnea; R79.89 Other specified abnormal findings of blood chemistry; I07.1 Rheumatic tricuspid insufficiency
CPT/HCPCS: 93306

== ENCOUNTER → 2025-01-13 11:24 | Outpatient (CLI) | payer OTHER, SELFPAY ==
--- NOTE | 2025-01-13 11:30 | DI.RAD.S_ITS ---
PROCEDURE: XR KNEE LT 1TO2V INDICATIONS: PAIN KNEE TECHNIQUE: 2 views of the knee were acquired. COMPARISON: None. FINDINGS: Bones: No acute fractures or dislocations. No suspicious bony lesions. Tiny marginal osteophytes. Soft tissues: No joint effusion. No suspicious soft tissue calcifications. IMPRESSION: No acute osseous abnormality. If symptoms persist or if there is continued clinical concern, cross-sectional imaging such as MRI may be helpful for further evaluation. Approved by: Jitendra Gaines M.D. on 01/13/2025 at 14:03
--- NOTE | 2025-01-13 11:30 | DI.RAD.S_ITS ---
PROCEDURE: XR KNEE RT 1TO2V INDICATIONS: PAIN IN KNEE TECHNIQUE: 2 views of the knee were acquired. COMPARISON: None. FINDINGS: Bones: No acute fractures or dislocations. No suspicious bony lesions. Minimal tricompartmental marginal osteophytes. Soft tissues: No joint effusion. No suspicious soft tissue calcifications. IMPRESSION: No acute osseous abnormality. If symptoms persist or if there is continued clinical concern, cross-sectional imaging such as MRI may be helpful for further evaluation. Approved by: Jitendra Gaines M.D. on 01/13/2025 at 14:04
== END ==
LOC: RAD 11:29
PROVIDERS: PCP Nurse Practitioner Family; Referring Provider Nurse Practitioner Family; Visit Provider Nurse Practitioner Family
DX: M25.562 Pain in left knee (principal); M25.561 Pain in right knee; N28.9 Disorder of kidney and ureter, unspecified; I10 Essential (primary) hypertension
CPT/HCPCS: 73560

== ENCOUNTER 2025-09-06 08:15 | Outpatient (RCR) | payer OTHER, SELFPAY ==
--- NOTE | 2025-06-30 17:59 | PT.OPPOC ---
Physical, Occupational & Speech Therapy At [facility] Current Diagnoses Anesthesia of skin (06/30/25) Sprain of calcaneofibular ligament of right ankle, subsequent encounter (06/30/25) Sprain of other ligament of right ankle, subsequent encounter (06/30/25) Visit Care Team Role Provider Type LUIS Yuen Attending Provider Non-Staff Family Provider Primary Care Provider Referring Provider Specialty: Nursing Address: [address] [place] [address], [place], [address] Email: Plan Of Care PT OP: Lower Back/Lower Extremity Start: 06/30/25 17:43 Freq: Status: Active Protocol: Document 06/30/25 17:43 KW (Rec: 06/30/25 17:58 KW Laptop) Out-Patient Physical Therapy Visit Information Visit Information Visit Type Initial Evaluation Visit Note filed for L&I Visit Start Time 16:15 Visit Stop Time 16:55 Visit Number 1 Progress Note Due 07/30/25 Precautions Precautions WBAT, air cast Current Condition History of Current Condition Onset Date 06/15/25 Current Complaints R ankle sprain History of Current 39 yo female, single mom of a 3 y/o, sustained a R Condition ankle sprain at work 06/15/25 after jumping up into a truck. She was seen for X-rays, given crutches and air cast. She is unable to place weight thru her foot as it going numb immediately. She lives up a full flight of stairs. She reports she is unable to get into see orthopedics until 10/03/25 Personal Factors Other Personal single mom of a 3 yo daugther Factors That May Effect Therapy/ Recovery Patient Questionnaires Lower Extremity Functional Scale LEFS Score 53 LEFS Impairment 20 to 39% Impaired (Score 48-62) OP-PT Pain Assessment Location r ankle Pain Location R ankle, foot Details Pain Intensity 5 Scale Used Numeric (0 - 10) Description Aching,Acute,Burning,Chronic,Pinching,Pulling,Sharp Frequency Frequent Pain Alleviating Cold,Medication Factors Pain Aggravating Position,Changing Position,Sitting Factors Balance Tests Tandem Tandem Standing deferred Functional Tests Five Times Sit to Stand Test Score deferred Manual Assessments Soft Tissue Assessment Soft Tissue Mobility tender along R Anterior talofibular ligament Assessment Joint Mobility Assessment Joint Mobility (+) joint laxity Assessment OP Mobility Evaluation Bed Mobility Supine to and from Indep Sit Transfers Sit to Stand unable to bear weight Functional Movements Lifting and Carrying using B crutches OP Gait Assessment Assistive Devices Assistive Device Axillary Crutches Orthotic/Prosthetic Yes Devices or Brace: Gait Deviations General Gait Pattern Antalgic Factors Limiting Gait Function Factors Limiting Decreased Sensation,Pain Gait Function Ankle and Foot Goniometric Range of Motion Ankle and Foot Measured in Degrees right Ankle/Foot ROM WFL No Testing Position Supine Dorsiflexion with 2 Knee Flexed Dorsiflexion with 0 Knee Extended Plantarflexion 20 Inversion 5 Eversion 3 Comments pain with all movements Ankle/Foot Strength Ankle and Foot Manual Muscle Testing Right Dorsiflexion (L4) 3+ Fair+ Plantarflexion (S1) 3+ Fair+ Inversion 3+ Fair+ Eversion (S1) 3+ Fair+ Gym Equipment Cable Column (Body Solid) supine ball series Details hamstring curls, LTR, bridge x 10 each Therapeutic Exercises Supine Exercises ankle AROM Supine Exercise Name ankle AROM DF/PF Side right Reps/Minutes 10 LE strength Supine Exercise Name bridging, SLR Side bilateral Reps/Minutes 20 Therapeutic Activity Therapeutic Activity ankle taping Name R ankle taping for stability Self-Care/Home Management Treatment Education Patient Education Body Mechanics,Fall Risk,Home Exercise Program,Joint Protection,Pain Management Other Education STRONGLY recommend she get into a walking boot. Air cast is not stable enough Physical Therapy Assessment Rehab Potential Rehabilitation Excellent Potential Evaluation Complexity Number of Personal 1-2 Factors/ Comorbidities Number of Body 1-2 Systems Impaired Clinical Stable Presentation at Evaluation Impairments Impairments Activity Tolerance,Balance,Functional Activities, Functional Mobility,Gait,Pain,ROM,Strength Goals Three Impairment R ankle pain Short Term Goal (STG patient reports 75% improved R ankle pain ) Two Impairment lack of HEP Short Term Goal (STG patient demonstrates compliance with HEP ) One Impairment impaired gait Short Term Goal (STG patient is able to walk without assistive device with ) walking boot STG Duration 6 weeks Assessment Summary Assessment 39 yo female with significant R lateral ankle sprain. She is in a air cast with crutches and strongly recommend a walking boot for better ankle stability. Pt will benefit from skilled PT to address deficits in ROM, gait, balance, strength in order to meet goals and return to work. Physical Therapy Plan Frequency and Duration Frequency of 2x/Week Treatment Duration of 6 treatment (weeks) Plan of Care Start 06/30/25 Date Plan of Care End 09/28/25 Date Therapeutic Interventions Therapeutic Balance Training,Gait Training,Home Exercise Program, Interventions Joint Mobilizations,Lymphedema Management,Manual Therapy,Neuromuscular Re-education,Orthotic/Prosthetic Management,Patient/Caregiver Education,Self-Care/Home Management,Soft Tissue Mobilization,Taping,Therapeutic Activities,Therapeutic Exercises Modalities Cold Pack/Ice Massage,Electric Stimulation,Ultrasound Next Visit Focus/Plan Next Note Type Treatment Note Next Visit Plan nu step shuttle HEP gait training Plan of Care Dates Plan of Care Start Date 06/30/25 Plan of Care End Date 09/28/25 Electronically Signed by: Felicia Bonner, PT 06/30/25 [id number] If you are in agreement with this Plan of Care, please return a signed and dated copy. I have reviewed this Plan of Care and certify that the skilled therapy services above are required to meet the patient?s needs. Physician Signature Date Printed Name and Credentials Clinical Instructor Signature Printed Name and Credentials
--- NOTE | 2025-07-05 18:29 | PT.OTN ---
Current Diagnoses Anesthesia of skin (07/05/25) Sprain of calcaneofibular ligament of right ankle, subsequent encounter (07/05/25) Sprain of other ligament of right ankle, subsequent encounter (07/05/25) Physical Therapy Treatment Note PT OP: Lower Back/Lower Extremity Start: 06/30/25 17:43 Freq: Status: Active Protocol: Document 07/05/25 14:17 PIPE FITTER MARINE (Rec: 07/05/25 14:18 PIPE FITTER MARINE Laptop) Out-Patient Physical Therapy Visit Information Visit Information Visit Type Treatment Note Visit Note filed for L&I Visit Start Time 14:34 Visit Stop Time 15:27 Visit Number 2 Number of PASTER SUPERVISOR Visits 0 Progress Note Due 07/30/25 Precautions Precautions WBAT, air cast OP-PT Subjective Patient Comments Patient Comments Pt amb into session wearing walking boot but still with significant antalgic gait pattern, without AD. Pt reports current pain at 7/10. She states yesterday her 3 y/o ran away from her at the store and she had to anil her into the parking lot which increased her pain and swelling, she did ice her ankle after. Cardio Equipment Recumbent Elliptical (NuStep) Duration (Minutes) 5 Resistance L1 Seat Position 6 Other BUEs and BLEs AAROM to RLE for DF stretch and slight WB with assist Gym Equipment Shuttle Recovery BLE Details RLE offset for more WB into LLE, terminated after x5 d/ t increased pain Resistance 25# Shuttle Recovery Stable Platform Reps/Time x5 Therapeutic Exercises Supine Exercises ankle AROM Supine Exercise Name ankle AROM DF/PF Side right Reps/Minutes 10x3 Comments before and after STM to calf muscles LE strength Supine Exercise Name new copy of current HEP given to pt per her request Gait Training Gait Activity AD rec Description recommended crutches to reduce WB and pain to RLE Device Used B axillary crutches Treatment Focus improved gait pattern Manual Therapy Treatment Consent Patient gave verbal Yes consent for manual treatment Soft Tissue Mobilization post leg Body Location R gastroc and soleus Mobilization Type Myofascial Release,Rolling Intensity/Depth Moderate Body Position Prone Taping R ankle Body Location R ankle Treatment Focus increase support Type of Tape leuko tape with cover roll Comments 1st piece medial to lateral ankle with support at calcaneus 2nd piece around medial and lateral malleoli inferior 3rd piece around medial and lateral malleoli slight superior to 2nd piece Physical Therapy Assessment Goals Three Impairment R ankle pain Short Term Goal (STG patient reports 75% improved R ankle pain ) Two Impairment lack of HEP Short Term Goal (STG patient demonstrates compliance with HEP ) One Impairment impaired gait Short Term Goal (STG patient is able to walk without assistive device with ) walking boot STG Duration 6 weeks Assessment Summary Assessment Pt tolerated light to mod STM to reduce soft tissue tightness of R gastroc/soleus, performed ankle pumps with minimal pain. Increased pain to R ankle with 15lbs on shuttle recovery but with WB offset to LLE, terminated d/t pain. Tolerated slight DF stretch and WB with NuStep on L1 for 5 mins. Recommended use of axillary crutches to improve pain and gait pattern, recommended applying foam (pt has foam that came with boot) to ant ankle under straps to help with tenderness caused by boot. Physical Therapy Plan Frequency and Duration Frequency of 2x/Week Treatment Duration of 6 treatment (weeks) Plan of Care Start 06/30/25 Date Plan of Care End 09/28/25 Date Next Visit Focus/Plan Next Note Type Treatment Note Next Visit Plan nu step shuttle HEP gait training
--- NOTE | 2025-07-13 17:04 | PT.OTN ---
Current Diagnoses Anesthesia of skin (07/13/25) Sprain of calcaneofibular ligament of right ankle, subsequent encounter (07/13/25) Sprain of other ligament of right ankle, subsequent encounter (07/13/25) Physical Therapy Treatment Note PT OP: Lower Back/Lower Extremity Start: 06/30/25 17:43 Freq: Status: Active Protocol: Document 07/13/25 16:59 KW (Rec: 07/13/25 17:03 KW Laptop) Out-Patient Physical Therapy Visit Information Visit Information Visit Type Treatment Note Visit Note filed for L&I Visit Start Time 16:15 Visit Stop Time 16:55 Visit Number 3 Number of ORCHARDIST Visits 0 Progress Note Due 07/30/25 Precautions Precautions WBAT, walking boot, crutches Current Condition History of Current Condition Onset Date 06/15/25 Current Complaints R ankle sprain History of Current 39 yo female, single mom of a 3 y/o, sustained a R Condition ankle sprain at work 06/15/25 after jumping up into a truck. She was seen for X-rays, given crutches and air cast. She is unable to place weight thru her foot as it going numb immediately. She lives up a full flight of stairs. She reports she is unable to get into see orthopedics until 10/03/25 Personal Factors Other Personal single mom of a 3 yo daugther Factors That May Effect Therapy/ Recovery OP-PT Subjective Patient Comments Patient Comments Ortho apt got moved up from OCT to AUG has applied for short term disability Patient Questionnaires Lower Extremity Functional Scale LEFS Score 53 LEFS Impairment 20 to 39% Impaired (Score 48-62) OP-PT Pain Assessment Location r ankle Pain Location R ankle, foot Details Pain Intensity 5 Scale Used Numeric (0 - 10) Description Aching,Acute,Burning,Chronic,Pinching,Pulling,Sharp Frequency Frequent Pain Alleviating Cold,Medication Factors Pain Aggravating Position,Changing Position,Sitting Factors Balance Tests Tandem Tandem Standing deferred Functional Tests Five Times Sit to Stand Test Score deferred Manual Assessments Soft Tissue Assessment Soft Tissue Mobility tender along R Anterior talofibular ligament Assessment Joint Mobility Assessment Joint Mobility (+) joint laxity Assessment OP Mobility Evaluation Bed Mobility Supine to and from Indep Sit Transfers Sit to Stand unable to bear weight Functional Movements Lifting and Carrying using B crutches OP Gait Assessment Assistive Devices Assistive Device Axillary Crutches Orthotic/Prosthetic Yes Devices or Brace: Gait Deviations General Gait Pattern Antalgic Factors Limiting Gait Function Factors Limiting Decreased Sensation,Pain Gait Function Ankle and Foot Goniometric Range of Motion Ankle and Foot right Ankle/Foot ROM WFL No Testing Position Supine Dorsiflexion with 2 Knee Flexed Dorsiflexion with 0 Knee Extended Plantarflexion 20 Inversion 5 Eversion 3 Comments pain with all movements Ankle/Foot Strength Ankle and Foot Manual Muscle Testing Right Dorsiflexion (L4) 3+ Fair+ Plantarflexion (S1) 3+ Fair+ Inversion 3+ Fair+ Eversion (S1) 3+ Fair+ Cardio Equipment Recumbent Elliptical (NuStep) Duration (Minutes) 5 Resistance L1 Seat Position 6 Other BUEs and BLEs AAROM to RLE for DF stretch and slight WB with assist Gym Equipment Cable Column (Body Solid) supine ball series Details hamstring curls, LTR, bridge x 10 each Shuttle Recovery BLE Details RLE offset for more WB into LLE, Resistance 25# Shuttle Recovery Stable Platform Reps/Time x15 Therapeutic Exercises Supine Exercises ankle AROM Supine Exercise Name ankle AROM DF/PF Side right Reps/Minutes 10x3 Comments before and after STM to calf muscles Therapeutic Activity Therapeutic Activity ankle taping Name R ankle taping for stability Gait Training Gait Activity AD rec Description recommended crutches to reduce WB and pain to RLE Device Used B axillary crutches Treatment Focus improved gait pattern Manual Therapy Treatment Consent Patient gave verbal Yes consent for manual treatment Soft Tissue Mobilization post leg Body Location R gastroc and soleus Mobilization Type Myofascial Release,Rolling Intensity/Depth Moderate Body Position Prone Taping R ankle Body Location R ankle Treatment Focus increase support Type of Tape leuko tape with cover roll Comments 1st piece medial to lateral ankle with support at calcaneus 2nd piece around medial and lateral malleoli inferior 3rd piece around medial and lateral malleoli slight superior to 2nd piece Self-Care/Home Management Treatment Education Patient Education Body Mechanics,Fall Risk,Home Exercise Program,Joint Protection,Pain Management Physical Therapy Assessment Rehab Potential Rehabilitation Excellent Potential Evaluation Complexity Number of Personal 1-2 Factors/ Comorbidities Number of Body 1-2 Systems Impaired Clinical Stable Presentation at Evaluation Impairments Impairments Activity Tolerance,Balance,Functional Activities, Functional Mobility,Gait,Pain,ROM,Strength Goals Three Impairment R ankle pain Short Term Goal (STG patient reports 75% improved R ankle pain ) Two Impairment lack of HEP Short Term Goal (STG patient demonstrates compliance with HEP ) One Impairment impaired gait Short Term Goal (STG patient is able to walk without assistive device with ) walking boot STG Duration 6 weeks Assessment Summary Assessment improved swelling and pain Physical Therapy Plan Frequency and Duration Frequency of 2x/Week Treatment Duration of 6 treatment (weeks) Plan of Care Start 06/30/25 Date Plan of Care End 09/28/25 Date Therapeutic Interventions Therapeutic Balance Training,Gait Training,Home Exercise Program, Interventions Joint Mobilizations,Lymphedema Management,Manual Therapy,Neuromuscular Re-education,Orthotic/Prosthetic Management,Patient/Caregiver Education,Self-Care/Home Management,Soft Tissue Mobilization,Taping,Therapeutic Activities,Therapeutic Exercises Modalities Cold Pack/Ice Massage,Electric Stimulation,Ultrasound Next Visit Focus/Plan Next Note Type Treatment Note Next Visit Plan nu step shuttle HEP gait training
--- NOTE | 2025-08-02 15:25 | PT.OTN ---
Current Diagnoses Anesthesia of skin (08/02/25) Sprain of calcaneofibular ligament of right ankle, subsequent encounter (08/02/25) Sprain of other ligament of right ankle, subsequent encounter (08/02/25) Physical Therapy Treatment Note PT OP: Lower Back/Lower Extremity Start: 06/30/25 17:43 Freq: Status: Active Protocol: Document 08/02/25 14:35 SP (Rec: 08/02/25 16:15 SP [id number]) Out-Patient Physical Therapy Visit Information Visit Information Visit Type Treatment Note Visit Note HEATHER Myers assisted in tx with instruction with ther ex with pt permission and under direct instruction and supervision of ARMIDA Fernandes. Visit Start Time 14:35 Visit Stop Time 15:25 Visit Number 4 Number of CHART CALCULATOR Visits 1 Progress Note Due 07/30/25 Precautions Precautions R ankle sprain at work 06/15/25. WBAT, walking boot, bilateral crutches OP-PT Subjective Patient Comments Patient Comments CHART CALCULATOR's first time meeting patient today. Pt reports was told to return to use of Bilateral crutches due to pain medial and lateral R ankle and continued use of walking boot. She wearing a 14 day heart monitor for heart murmur. She hops up stairs with serena crutches on LLE and grabs serena rails for balance as needed, stated never shown how to use crutches on stairs. She states has an orthopedic appt next es up in [place]. She inquired how our notes can be sent up to her orthopedic for appt prep. She stated [employer] denied L&I claim, is on disability. Gym Equipment Shuttle Recovery BLE Details boot doffed R ankle, cues for even WB Resistance 12# Shuttle Recovery Stable Platform Reps/Time 5 reps x2 Therapeutic Exercises Sitting Exercises Foot Intrinics Sitting Exercise added to HEP: Big Toe Ext & 2-4 Ext with 1st down, toe Name crunches, Toe Abd Side right Resistance SPTA supported toes down so other can lift into ext Reps/Minutes 10 reps each Comments challenging sgtrength and AROM, but improves range with reps- is not pnfree Ankle resistance Sitting Exercise added to HEP with HO: DF& PF Name Side right Resistance Tb #1 Reps/Minutes 5 reps each direction (/10 pain Comments cued for slow movement ideal low to painfree range- reports is bothersome Gait Training Gait Activity Stair Mgt Description Step to patterning Device Used B crutches Level of Assistance close SBA Distance/Duration 4 steps x2 sets Treatment Focus 2 pt patterning asc/desc with crutches and HR, Comments Instruction stair mgt: Ascending: Step to patterning Serena crutches in RUE, LUE on hand rail, BUE WB on rail/crutches and WB into RLE, advance LLE to forward step then RLE and crutch carryover to same step. Descending: B crutches in LUE, RHR Crutch placement on forward lower step with RLE WB on step then LLE carryover same step. Pt reports feel more confident/stable this patterning. AD rec Description Walking Boot donned Device Used B axillary crutches Treatment Focus good patterning 3pt gait Comments demonstrates 25% WB, improved up to 50% WB with instruction tolerance allowed WBAT on RLE Hot Pack/Cold Pack Treatment Cold Pack Location R ankle Patient Tolerance Fair Comments supine>seated with BLEs elevated-due to back pain and abdominal spasming. Physical Therapy Assessment Goals Three Impairment R ankle pain Short Term Goal (STG patient reports 75% improved R ankle pain ) 08/02/25: pt reports 10-15 % pain reduction from start of PT. STG Duration slow progression 08/02/25 Two Impairment lack of HEP Short Term Goal (STG patient demonstrates compliance with HEP ) 08/02/25: R ankle AROM, added TB level 1 DF/PF, toe scrunching, Big toe extension, support for 2-4 MTP down on floor. STG Duration slow progression 08/02/25 One Impairment impaired gait Short Term Goal (STG patient is able to walk without assistive device with ) walking boot 08/02/25: has returned to walking with Bilateral crutches and Walking boot, demonstrates 25-50% WB. Discussion can perform WBAT identified in eval. STG Duration 6 weeks slow progression 08/02/25 Assessment Summary Assessment CHART CALCULATOR instructed proper patterning stairs with serena crutches step to patterning, imrproved stability and form. Pt continues to c/o moderate pain medial and lateral inferior malleolus and ove anterior R ankle, during most of mobility but understands importance of movment low to painfree range to continue to allow ankle stability support during gait in WB, boot donned and Serena crutches WBAT. She demonstrates 25-50% WB onto RLE. Initiated foot intrinics and reviewed low level ankle resisted ankle HEP to progress WB tolerance and stability. Pt reported increased pain 05/12 end of tx, agreeable to cold pack for pain control support. Good feedback lessened pain after ice, scale not reported. Physical Therapy Plan Frequency and Duration Frequency of 2x/Week Treatment Duration of 6 treatment (weeks) Plan of Care Start 06/30/25 Date Plan of Care End 09/28/25 Date Therapeutic Interventions Therapeutic Balance Training,Gait Training,Home Exercise Program, Interventions Joint Mobilizations,Lymphedema Management,Manual Therapy,Neuromuscular Re-education,Orthotic/Prosthetic Management,Patient/Caregiver Education,Self-Care/Home Management,Soft Tissue Mobilization,Taping,Therapeutic Activities,Therapeutic Exercises Modalities Cold Pack/Ice Massage,Electric Stimulation,Ultrasound Next Visit Focus/Plan Next Note Type Progress Note Next Visit Plan PT Birdie to complete PN today. Next tx: assess response to foot intrinic and TB R ankle HEP. PT POC: nu step (recumbent stepper bike), shuttle recovery (leg press) HEP, gait training
--- NOTE | 2025-08-02 16:43 | PT.OPPN ---
Current Diagnoses Anesthesia of skin (08/02/25) Sprain of calcaneofibular ligament of right ankle, subsequent encounter (08/02/25) Sprain of other ligament of right ankle, subsequent encounter (08/02/25) Physical Therapy Progress Note PT OP: Lower Back/Lower Extremity Start: 06/30/25 17:43 Freq: Status: Active Protocol: Document 08/02/25 16:42 SAK (Rec: 08/02/25 16:43 SAK Laptop) Out-Patient Physical Therapy Visit Information Visit Information Visit Type Progress Note Physical Therapy Assessment Goals Three Impairment R ankle pain Short Term Goal (STG patient reports 75% improved R ankle pain ) 08/02/25: pt reports 10-15 % pain reduction from start of PT. STG Duration slow progression 08/02/25 Two Impairment lack of HEP Short Term Goal (STG patient demonstrates compliance with HEP ) 08/02/25: R ankle AROM, added TB level 1 DF/PF, toe scrunching, Big toe extension, support for 2-4 MTP down on floor. STG Duration slow progression 08/02/25 One Impairment impaired gait Short Term Goal (STG patient is able to walk without assistive device with ) walking boot 08/02/25: has returned to walking with Bilateral crutches and Walking boot, demonstrates 25-50% WB. Discussion can perform WBAT identified in eval. STG Duration 6 weeks slow progression 08/02/25 Assessment Summary Assessment RESIDENTIAL BUILDER instructed proper patterning stairs with yasmani crutches step to patterning, imrproved stability and form. Pt continues to c/o moderate pain medial and lateral inferior malleolus and ove anterior R ankle, during most of mobility but understands importance of movment low to painfree range to continue to allow ankle stability support during gait in WB, boot donned and Yasmani crutches WBAT. She demonstrates 25-50% WB onto RLE. Initiated foot intrinics and reviewed low level ankle resisted ankle HEP to progress WB tolerance and stability. Pt reported increased pain 7/10 end of tx, agreeable to cold pack for pain control support. Good feedback lessened pain after ice, scale not reported. Physical Therapy Plan Next Visit Focus/Plan Next Note Type Progress Note Next Visit Plan PT Birdie to complete PN today. Next tx: assess response to foot intrinic and TB R ankle HEP. PT POC: nu step (recumbent stepper bike), shuttle recovery (leg press) HEP, gait training
--- NOTE | 2025-08-04 14:40 | PT-OP ANOTE ---
Addendum entered and electronically signed by Dena Hoffman PTA 08/04/25 14:58: Due for Progress Note next visit 08/08 with PT Birdie. Addendum entered and electronically signed by Dena Hoffman PTA 08/04/25 14:57: Pt only has 1 more appt with PT, will need to add more appts. Original Note: Pt did not show for PT appt at 1430 today. When SILK BRUSHER called her, she mentioned didn't realized had a PT appt until Fri this week. She was unable to attend today when asked, due to at grandchild's birthday democrat at school. She confirmed next appt.
--- NOTE | 2025-08-04 14:59 | PT-OP ANOTE ---
Pt did not show for PT appt at 1430 today. When CORRECTIONAL FACILITY NURSE called her, she mentioned didn't realized had a PT appt until Fri this week. She was unable to attend today when asked, due to at grandchild's birthday alliance party at school. She confirmed next appt Mon 08/08 with PT, is the last scheduled visit, will need add more appts.
--- NOTE | 2025-08-08 16:36 | PT.OPPN ---
Current Diagnoses Anesthesia of skin (08/08/25) Sprain of calcaneofibular ligament of right ankle, subsequent encounter (08/08/25) Sprain of other ligament of right ankle, subsequent encounter (08/08/25) Physical Therapy Progress Note PT OP: Lower Back/Lower Extremity Start: 06/30/25 17:43 Freq: Status: Active Protocol: Document 08/08/25 15:20 SAK (Rec: 08/08/25 16:35 SAK Laptop) Out-Patient Physical Therapy Visit Information Visit Information Visit Type Treatment Note Visit Start Time 15:20 Visit Stop Time 16:10 Visit Number 5 Number of ANALYTICS ASSOCIATE Visits 0 Precautions Precautions R ankle sprain at work 06/15/25. WBAT, walking boot, bilateral crutches OP-PT Subjective Patient Comments Patient Comments Pain 05/12 right ankle, uses Gabapentine at night to help sleep. Sees orthopedist in [place] tomorrow. Has been doing more at home, more walking, hurting more . Cardio Equipment Recumbent Elliptical (NuStep) Duration (Minutes) 5 Resistance L1 Seat Position 6 Other BUEs and BLEs AAROM to RLE for DF stretch and slight WB with assist Gym Equipment Cable Column (Body Solid) supine ball series Details hamstring curls, LTR, bridge x 10 each Shuttle Recovery BLE Details boot doffed R ankle, cues for even WB Resistance 12# Shuttle Recovery Stable Platform Reps/Time 5 reps x2 Therapeutic Exercises Supine Exercises ankle AROM Supine Exercise Name ankle AROM DF/PF/inv/ev Side right Resistance L1 TB Reps/Minutes 10x LE strength Supine Exercise Name SLR, SAQ Reps/Minutes 10x Comments cues for ankle df with both Sitting Exercises Foot Intrinics Sitting Exercise added to HEP: Big Toe Ext & 2-4 Ext with 1st down, toe Name crunches, Toe Abd Side right Resistance SPTA supported toes down so other can lift into ext Reps/Minutes 10 reps each Comments challenging sgtrength and AROM, but improves range with reps- is not pnfree Ankle resistance Sitting Exercise added to HEP with HO: DF& PF Name Side right Resistance Tb #1 Reps/Minutes 5 reps each direction (4/10 pain Comments cued for slow movement ideal low to painfree range- reports is bothersome Manual Therapy Treatment Soft Tissue Mobilization post leg Body Location R gastroc and soleus, ant tib, lateral ankle Mobilization Type Myofascial Release,Rolling Intensity/Depth Moderate Body Position Supine Hot Pack/Cold Pack Treatment Cold Pack Location R ankle Patient Tolerance Fair Comments supine>seated with BLEs elevated-due to back pain and abdominal spasming. Physical Therapy Assessment Goals Three Impairment R ankle pain Care Home Goal (LTG) patient reports 75% improved R ankle pain 08/02/25: pt reports 10-15 % pain reduction from start of PT. LTG Duration 09/28/25 Two Impairment lack of HEP Short Term Goal (STG patient demonstrates compliance with HEP ) 08/02/25: R ankle AROM, added TB level 1 DF/PF, toe scrunching, Big toe extension, support for 2-4 MTP down on floor. STG Duration slow progression 08/02/25 Care Home Goal (LTG) Patient to demonstrate improvement in right ankle strength to 5/5. LTG Duration 09/28/25 One Impairment impaired gait; using walking boot and crutches Short Term Goal (STG patient is able to walk without assistive device with ) walking boot 08/02/25: has returned to walking with Bilateral crutches and Walking boot, demonstrates 25-50% WB. Discussion can perform WBAT identified in eval. STG Duration 6 weeks slow progression 08/02/25 Sewage Reticulation Drafting Officer Goal (LTG) Patient able to ambulate without boot or device without limp and with min pain LTG Duration 09/28/25 Assessment Summary Assessment Patient reporting high pain level, achy pain right ankle. Doing more walking at home, continues to use boot and crutches. Sees orthopedist tomorrow in [place]. Reports compliance to HEP. Takes Gabapentin at night. Physical Therapy Plan Frequency and Duration Frequency of 2x/Week Treatment Duration of 12 treatment (weeks) Plan of Care Start 06/30/25 Date Plan of Care End 09/28/25 Date Therapeutic Interventions Therapeutic Balance Training,Gait Training,Home Exercise Program, Interventions Joint Mobilizations,Lymphedema Management,Manual Therapy,Neuromuscular Re-education,Orthotic/Prosthetic Management,Patient/Caregiver Education,Self-Care/Home Management,Soft Tissue Mobilization,Taping,Therapeutic Activities,Therapeutic Exercises Modalities Cold Pack/Ice Massage,Electric Stimulation,Ultrasound Next Visit Focus/Plan Next Note Type Progress Note Next Visit Plan Continue PT pending recommendations from orthopedist appt tomorrow. Progress ankle ROM, strengthening, gait .
--- NOTE | 2025-08-15 15:49 | PT.OTN ---
Current Diagnoses Anesthesia of skin (08/15/25) Sprain of calcaneofibular ligament of right ankle, subsequent encounter (08/15/25) Sprain of other ligament of right ankle, subsequent encounter (08/15/25) Physical Therapy Treatment Note PT OP: Lower Back/Lower Extremity Start: 06/30/25 17:43 Freq: Status: Active Protocol: Document 08/15/25 14:40 PD (Rec: 08/15/25 15:41 PD [id number]) Out-Patient Physical Therapy Visit Information Visit Information Visit Type Treatment Note Visit Note SPTA Lucia led tx session with direct supervision from SIDER MECHANIC Dena and patient permission Visit Start Time 14:40 Visit Stop Time 15:22 Visit Number 6 Number of SIDER MECHANIC Visits 1 Precautions Precautions R ankle sprain at work 06/15/25. WBAT, walking boot, bilateral crutches OP-PT Subjective Patient Comments Patient Comments Pt saw orthopedist since last visit and has been transitioned to ankle brace (provided by ) now instead of boot. Pt reports MD has cleared her to do activities but they are following up with an MRI on August 30. X-ray imaging did not show any breaks per pt. Pt gives pain level at 5/10 prior to tx session, pretty consistent throughout day. Pain is better when she is resting and not walking. Pt ices and elevates ankle at home to manage pain. Cardio Equipment Recumbent Elliptical (NuStep) Duration (Minutes) 5 Resistance L1>2 Seat Position 6 Other BUEs and BLEs AAROM to RLE for DF stretch and slight WB with assist Gym Equipment Shuttle Recovery BLE Details boot doffed R ankle, cues for even WB Resistance 25#, then 12# Shuttle Recovery Stable Platform Reps/Time 2 x 10 Therapeutic Exercises Sitting Exercises BAPS board Sitting Exercise All way BAPS board Name Side right Resistance L1, L2 Equipment Used BAPS Reps/Minutes x 5 each level Comments Cues for correct motion, monitor pain LAQ Sitting Exercise LAQ Name Side right Resistance 2# AW Reps/Minutes x 10 Comments Cues for slow up/slow down, monitor for pain Foot Intrinics Sitting Exercise added to HEP: Big Toe Ext & 2-4 Ext with 1st down, toe Name crunches, Toe Abd Side right Resistance SPTA supported toes down so other can lift into ext Reps/Minutes 10 reps each Comments challenging sgtrength and AROM, but improves range with reps- is not pnfree Ankle resistance Sitting Exercise added to HEP with HO: DF& PF, Eversion, corrected pt Name recall of proper form Side right Resistance Tb #2 Reps/Minutes 2 x 10 reps each direction (4/10 pain) Comments cued for slow movement ideal low to painfree range - SPTA had to demo form Standing Exercises Heeel/toe raises Standing Exercise Heel/toe raises Name Side bilateral Resistance BW Equipment Used 4 step Reps/Minutes x 3 Comments Too much for this week, cue for small range, monitoring pain Manual Therapy Treatment Consent Patient gave verbal Yes consent for manual treatment Soft Tissue Mobilization R ankle Body Location Lateral,posterior, anterior Mobilization Type Cross-Friction,Rolling Intensity/Depth Superficial Body Position Seated Comments Educated pt on self mobilization. Physical Therapy Assessment Goals Three Impairment R ankle pain Manager Integration Goal (LTG) patient reports 75% improved R ankle pain 08/02/25: pt reports 10-15 % pain reduction from start of PT. LTG Duration 09/28/25 Two Impairment lack of HEP Short Term Goal (STG patient demonstrates compliance with HEP ) 08/02/25: R ankle AROM, added TB level 1 DF/PF, toe scrunching, Big toe extension, support for 2-4 MTP down on floor. STG Duration slow progression 08/02/25 Detention Goal (LTG) Patient to demonstrate improvement in right ankle strength to 5/5. LTG Duration 09/28/25 One Impairment impaired gait; using walking boot and crutches Short Term Goal (STG patient is able to walk without assistive device with ) walking boot 08/02/25: has returned to walking with Bilateral crutches and Walking boot, demonstrates 25-50% WB. Discussion can perform WBAT identified in eval. 08/15/25: Pt walking with ankle brace, no boot, no AD, gait still antalgic STG Duration 6 weeks slow progression 08/02/25 Detention Goal (LTG) Patient able to ambulate without boot or device without limp and with min pain LTG Duration 09/28/25 Assessment Summary Assessment Pt able to complete exercises today with verbal and tactile cues, small range toe raises were too much, only completed 3 reps. Pt reports pain at end of session increased from 5/10 to 6/10. Focused on ROM, slow increase in strength. Progressed resistance in NuStep from 1>2 and in Shuttle Recovery bilateral squats from 12# to 25#, able to complete R unilateral at 12# x 10 reps. Progressed to L2 band for HEP ankle exercises. Pt will continue to complete toe yoga exercises and ankle resistance exercises for HEP. Physical Therapy Plan Frequency and Duration Frequency of 2x/Week Treatment Duration of 12 treatment (weeks) Plan of Care Start 06/30/25 Date Plan of Care End 09/28/25 Date Therapeutic Interventions Therapeutic Balance Training,Gait Training,Home Exercise Program, Interventions Joint Mobilizations,Lymphedema Management,Manual Therapy,Neuromuscular Re-education,Orthotic/Prosthetic Management,Patient/Caregiver Education,Self-Care/Home Management,Soft Tissue Mobilization,Taping,Therapeutic Activities,Therapeutic Exercises Modalities Cold Pack/Ice Massage,Electric Stimulation,Ultrasound Next Visit Focus/Plan Next Note Type Treatment Note Next Visit Plan Continue to progress R ankle ROM and strengthening within pain tolerance. Progress to exercises that include glut and quad strengthening, balance training, normalizing gait - specifically working on improving toe off/hip ext, and correcting circumduction.
--- NOTE | 2025-08-22 09:14 | PT-OP ANOTE ---
Pt cancelled today's appt, confirmed via text response.
--- NOTE | 2025-08-29 12:18 | PT-OP ANOTE ---
Pt cancelled appt today, hoseman wrote cancel confirmed, assuming via text message system. 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 Next appt check if need make more appts.
--- NOTE | 2025-08-29 17:52 | PT.OTN ---
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 WBAT, walking boot, bilateral crutches Current Condition History of Current Condition Onset Date 06/15/25 Current Complaints R ankle sprain History of Current 39 yo female, single mom of a 3 y/o, sustained a R Condition ankle sprain at work 06/15/25 after jumping up into a truck. She was seen for X-rays, given crutches and air cast. She is unable to place weight thru her foot as it going numb immediately. She lives up a full flight of stairs. She reports she is unable to get into see orthopedics until 10/03/25 OP-PT Subjective Patient Comments Patient Comments Patient having MRI 08/31/25. Pain persists in right ankle 03/12. To PT with no assistive device, antalgic gait with right LE out to side and lack of full weight- bearing onto right LE. Cardio Equipment Recumbent Elliptical (NuStep) Duration (Minutes) 3 Resistance L1 Seat Position 6 Other discontinued to to increase in ankle pain Therapeutic Exercises Sitting Exercises BAPS board Sitting Exercise All way BAPS board Name Side right Resistance L2 Equipment Used BAPS Reps/Minutes x 5 each level Comments Cues for correct motion, monitor pain Gait Training Gait Activity AD rec Description ankle brace Device Used parallel bars serena, then SPC left UE Level of Assistance vc Surface firm Distance/Duration 50 ft x 2, 75 ft x 1 Treatment Focus shorter steps, normalized pattern, use of cane to offload right LE Comments cues also for soft knee right due to recurvatum noted with gait with abducted right LE, improved with SPC and pt ed Manual Therapy Treatment Soft Tissue Mobilization R ankle Body Location Lateral,posterior, anterior Mobilization Type Cross-Friction,Rolling Intensity/Depth Superficial Body Position Seated Comments Educated pt on self mobilization. Ultrasound Therapy Treatment right ankle Patient Position Supine Frequency Setting ( 3 mHz) Mode Setting Continuous Duty Cycle 100% Intensity Setting (w 1.2 /cm2) Physical Therapy Assessment Rehab Potential Rehabilitation Excellent Potential Impairments Impairments Activity Tolerance,Balance,Functional Activities, Functional Mobility,Gait,Pain,ROM,Strength Goals Three Impairment R ankle pain Care Home Goal (LTG) patient reports 75% improved R ankle pain 08/02/25: pt reports 10-15 % pain reduction from start of PT. LTG Duration 09/28/25 Two Impairment lack of HEP Short Term Goal (STG patient demonstrates compliance with HEP ) 08/02/25: R ankle AROM, added TB level 1 DF/PF, toe scrunching, Big toe extension, support for 2-4 MTP down on floor. STG Duration slow progression 08/02/25 Care Home Goal (LTG) Patient to demonstrate improvement in right ankle strength to 5/5. LTG Duration 09/28/25 One Impairment impaired gait; using walking boot and crutches Short Term Goal (STG patient is able to walk without assistive device with ) walking boot 08/02/25: has returned to walking with Bilateral crutches and Walking boot, demonstrates 25-50% WB. Discussion can perform WBAT identified in eval. 08/15/25: Pt walking with ankle brace, no boot, no AD, gait still antalgic STG Duration 6 weeks slow progression 08/02/25 Care Home Goal (LTG) Patient able to ambulate without boot or device without limp and with min pain LTG Duration 09/28/25 Assessment Summary Assessment Pt. high pain level persists, has MRI 08/31/25. Pt. to PT with no assistive device with significant gait deviations. Provided gait training with SPC with cues for sequencing and improved gait. Advised to borrow cane and focus on gait normalization. Trial ultrasound to right ankle today. Issued to-go ice after treatment as waiting. Physical Therapy Plan Frequency and Duration Frequency of 2x/Week Treatment Duration of 12 treatment (weeks) Plan of Care Start 06/30/25 Date Plan of Care End 09/28/25 Date Therapeutic Interventions Therapeutic Balance Training,Gait Training,Home Exercise Program, Interventions Joint Mobilizations,Lymphedema Management,Manual Therapy,Neuromuscular Re-education,Orthotic/Prosthetic Management,Patient/Caregiver Education,Self-Care/Home Management,Soft Tissue Mobilization,Taping,Therapeutic Activities,Therapeutic Exercises Modalities Cold Pack/Ice Massage,Electric Stimulation,Ultrasound Next Visit Focus/Plan Next Note Type Treatment Note Next Visit Plan Discuss outcome MRI, physician recommendations, need for further PT.
--- NOTE | 2025-09-06 16:35 | PT.OTN ---
Current Diagnoses Anesthesia of skin (09/06/25) Sprain of calcaneofibular ligament of right ankle, subsequent encounter (09/06/25) Sprain of other ligament of right ankle, subsequent encounter (09/06/25) Physical Therapy Treatment Note PT OP: Lower Back/Lower Extremity Start: 06/30/25 17:43 Freq: Status: Active Protocol: Document 09/06/25 08:16 SAK (Rec: 09/06/25 09:05 SAK Laptop) Out-Patient Physical Therapy Visit Information Visit Information Visit Type Treatment Note Visit Start Time 08:17 Visit Stop Time 09:00 Visit Number 4 Number of ELEVATOR CONSTRUCTOR SUPERVISOR Visits 0 Precautions Precautions R ankle sprain at work 06/15/25. WBAT, walking boot, bilateral crutches Current Condition History of Current Condition Onset Date 06/15/25 Current Complaints R ankle sprain History of Current 39 yo female, single mom of a 3 y/o, sustained a R Condition ankle sprain at work 06/15/25 after jumping up into a truck. She was seen for X-rays, given crutches and air cast. She is unable to place weight thru her foot as it going numb immediately. She lives up a full flight of stairs. She reports she is unable to get into see orthopedics until 10/03/25 OP-PT Subjective Patient Comments Patient Comments Had MRI, find out results today at 2:00. Ankle pain unchanged. Trying to do exercises. Hasn't gotten a cane as recommended by PT. Therapeutic Exercises Supine Exercises HC stretch Equipment Used strap Reps/Minutes 30 x 2 ankle AROM Supine Exercise Name ankle AROM DF/PF/inv/ev Side right Resistance L2 TB Reps/Minutes 10x2 Sitting Exercises BAPS board Sitting Exercise All way BAPS board Name Side right Resistance L3 Equipment Used BAPS Reps/Minutes x 10 each direction Comments Cues for correct motion, monitor pain Gait Training Gait Activity AD rec Description ankle brace Device Used parallel bars serena, then SPC left UE Level of Assistance vc Surface firm Distance/Duration 50 ft x 2, 75 ft x 1 Treatment Focus shorter steps, normalized pattern, use of cane to offload right LE Comments cues to decrease step length, weight shift fully but offload with cane, push off, soft knee Manual Therapy Treatment Soft Tissue Mobilization R ankle Body Location Lateral,posterior, anterior Mobilization Type Cross-Friction,Rolling Intensity/Depth Superficial Body Position Seated Comments Educated pt on self mobilization. Self-Care/Home Management Treatment Education Other Education [employer] open today; obtain cane out of medical supply room (free) Hot Pack/Cold Pack Treatment Cold Pack Location R ankle Patient Position Hooklying Patient Tolerance Fair Comments supine>seated with BLEs elevated-due to back pain and abdominal spasming. Ultrasound Therapy Treatment right ankle Patient Position Supine Frequency Setting ( 3 mHz) Mode Setting Continuous Duty Cycle 100% Intensity Setting (w 1.2 /cm2) Physical Therapy Assessment Impairments Impairments Activity Tolerance,Balance,Functional Activities, Functional Mobility,Gait,Pain,ROM,Strength Goals Three Impairment R ankle pain Interventional Technologist Goal (LTG) patient reports 75% improved R ankle pain 08/02/25: pt reports 10-15 % pain reduction from start of PT. LTG Duration 09/28/25 Two Impairment lack of HEP Short Term Goal (STG patient demonstrates compliance with HEP ) 08/02/25: R ankle AROM, added TB level 1 DF/PF, toe scrunching, Big toe extension, support for 2-4 MTP down on floor. STG Duration slow progression 08/02/25 Interventional Technologist Goal (LTG) Patient to demonstrate improvement in right ankle strength to 5/5. LTG Duration 09/28/25 One Impairment impaired gait; using walking boot and crutches Short Term Goal (STG patient is able to walk without assistive device with ) walking boot 08/02/25: has returned to walking with Bilateral crutches and Walking boot, demonstrates 25-50% WB. Discussion can perform WBAT identified in eval. 08/15/25: Pt walking with ankle brace, no boot, no AD, gait still antalgic STG Duration 6 weeks slow progression 08/02/25 Interventional Technologist Goal (LTG) Patient able to ambulate without boot or device without limp and with min pain LTG Duration 09/28/25 Assessment Summary Assessment Patient did not obtain cane for gait, continues with antalgic gait. Informed of [employer] medical supply loan program and given address and phone information. Gait improved with use of cane with further pt ed for technique, smaller steps, full weight shift with offloading by cane, heelstrike, push-off. Has review of MRI today. Physical Therapy Plan Frequency and Duration Frequency of 2x/Week Treatment Duration of 12 treatment (weeks) Plan of Care Start 06/30/25 Plan of Care End 09/28/25 Date Therapeutic Interventions Therapeutic Balance Training,Gait Training,Home Exercise Program, Interventions Joint Mobilizations,Lymphedema Management,Manual Therapy,Neuromuscular Re-education,Orthotic/Prosthetic Management,Patient/Caregiver Education,Self-Care/Home Management,Soft Tissue Mobilization,Taping,Therapeutic Activities,Therapeutic Exercises Modalities Cold Pack/Ice Massage,Electric Stimulation,Ultrasound Next Visit Focus/Plan Next Note Type Treatment Note Next Visit Plan Discuss outcome MRI, physician recommendations, need for further PT.
--- NOTE | 2025-10-24 08:53 | PT.OPDS ---
Current Diagnoses Anesthesia of skin (09/06/25) Sprain of calcaneofibular ligament of right ankle, subsequent encounter (09/06/25) Sprain of other ligament of right ankle, subsequent encounter (09/06/25) Visit Care Team Role Provider Type LUIS Yuen Attending Provider Non-Staff Family Provider Primary Care Provider Referring Provider Specialty: Nursing Address: [address] [place] [address], [place], [address] Email: Visit Number Visit Number 4 Discharge Summary PT OP: Lower Back/Lower Extremity Start: 06/30/25 17:43 Freq: Status: Active Protocol: Document 10/24/25 08:52 SAK (Rec: 10/24/25 08:53 SAK Laptop) Out-Patient Physical Therapy Visit Information Visit Information Visit Type Discharge Summary Visit Note Pt. not seen since 09/03/25. Had MRI and was going to consult with physician regarding results and plan. Has not contacted PT and she will new referral if to continue PT. Will discharge at this time. Physical Therapy Plan Discharge Physical Therapy Discharge Reasons No Longer Attending PT Discharge Comments s/p MRI
== END 2025-11-01 09:59 | disposition home or self-care (01) ==
LOC: PHYS 08:15
PROVIDERS: Family Provider Nurse Practitioner Family; PCP Nurse Practitioner Family; Referring Provider Nurse Practitioner Family; Visit Provider Nurse Practitioner Family
DX: S93.411D Sprain of calcaneofibular ligament of right ankle, subsequent encounter (principal); R20.0 Anesthesia of skin; S93.491D Sprain of other ligament of right ankle, subsequent encounter
CPT/HCPCS: 97035; 97110; 97116; 97140; 97161; 97530